=== PATIENT | female | born 1965 | race Caucasian/White ===

== ENCOUNTER → 2019-07-16 15:29 | Outpatient (CLI) | payer BC, SELFPAY ==
--- NOTE | ~2019-07-16 | MM_ITS ---
EXAMINATION: MM screening [facility] BI w biju HISTORY: Screening mammogram TECHNIQUE: Craniocaudal and mediolateral oblique 3-D tomosynthesis images were obtained and synthetic 2-D images were generated. CAD analysis was submitted and interpreted. COMPARISON: 05/03/2018 bilateral digital screening mammogram 03/10/2017 diagnostic left digital mammogram 02/27/2017, 01/27/2016 bilateral digital screening mammograms BREAST PARENCHYMAL COMPOSITION: The breasts are heterogeneously dense, which may obscure small masses . FINDINGS: . There is no evidence of suspicious mass, calcification, or architectural distortion to hawkins ggest malignancy in either breast. There has been no suspicious interval change. IMPRESSION: 1. No mammographic evidence of malignancy. 2. Recommend routine screening mammography in one year. BI-RADS Category 1: Negative Reviewed, dictated and finalized at location A.
== END ==
PROVIDERS: PCP Physician Assistant; Visit Provider Obstetrics & Gynecology
DX: Z12.31 Encounter for screening mammogram for malignant neoplasm of breast (principal)
CPT/HCPCS: 77063; 77067

== ENCOUNTER 2020-03-23 07:02 | Outpatient (NON) | payer BC, SELFPAY ==
[2020-03-24 01:01] LABS: SARS-CoV-2 RNA PCR Negative
== END 2020-03-23 07:03 ==
PROVIDERS: PCP Physician Assistant; Visit Provider Physician Assistant
DX: R68.89 Other general symptoms and signs (principal); Z20.828 Contact with and (suspected) exposure to other viral communicable diseases
CPT/HCPCS: 87635; C9803; U0003

== ENCOUNTER → 2020-09-15 15:22 | Outpatient (CLI) | payer OTHER, SELFPAY ==
--- NOTE | ~2020-09-15 | MM_ITS ---
EXAMINATION: MM screening [facility] BI w biju HISTORY: Screening mammogram TECHNIQUE: Craniocaudal and mediolateral oblique 3-D tomosynthesis images were obtained and synthetic 2-D images were generated. CAD analysis was submitted and interpreted. COMPARISON: 07/12/2019, 05/03/2018 bilateral digital screening mammogram examinations 03/10/2017 diagnostic left digital mammogram 02/27/2017, 02/27/2016 bilateral digital screening mammogram examinations BREAST PARENCHYMAL COMPOSITION: The breasts are heterogeneously dense, which may obscure small masses . FINDINGS: There is no evidence of suspicious mass, calcification, or architectural distortion to sugg est malignancy in either breast. There has been no suspicious interval change. IMPRESSION: 1. No mammographic evidence of malignancy. 2. Recommend routine screening mammography in one year. BI-RADS Category 1: Negative Reviewed, dictated and finalized at location A.
== END ==
PROVIDERS: PCP Physician Assistant; Visit Provider Obstetrics & Gynecology
DX: Z12.31 Encounter for screening mammogram for malignant neoplasm of breast (principal)
CPT/HCPCS: 77063; 77067

== ENCOUNTER → 2021-12-01 10:35 | Outpatient (CLI) | payer BC, SELFPAY ==
--- NOTE | ~2021-12-01 | MM_ITS ---
EXAMINATION: MM screening [facility] BI w biju HISTORY: Screening mammogram TECHNIQUE: Craniocaudal and mediolateral oblique 3-D tomosynthesis images were obtained and synthetic 2-D images were generated. CAD analysis was submitted and interpreted. COMPARISON: 09/15/2020, 07/16/2019, 05/03/2018 BREAST PARENCHYMAL COMPOSITION: There are scattered areas of fibroglandular density. FINDINGS: There is no suspicious mass, calcification, or architectural distortion to suggest malignan cy in either breast. There has been no suspicious interval change. IMPRESSION: 1. No mammographic evidence of malignancy. 2. Recommend routine screening mammography in one year. BI-RADS Category 1: Negative Reviewed, dictated and finalized at location A.
== END ==
PROVIDERS: PCP Physician Assistant; Visit Provider Obstetrics & Gynecology
DX: Z12.31 Encounter for screening mammogram for malignant neoplasm of breast (principal)
CPT/HCPCS: 77063; 77067

== ENCOUNTER 2022-02-09 07:59 | Emergency (ER) | payer BC, SELFPAY ==
[2022-02-09] VITALS (12 sets, daily range): BP systolic 126–165; BP diastolic 75–84; PULSE 84–121; RESP 16–18; TEMP 37; O2SAT 94–97
--- NOTE | ~2022-02-09 | CT_ITS ---
EXAMINATION: CT abdomen pelvis w con DATE: 02/09/2022 10:16 INDICATION: Abdominal pain, chills and fever. Urinary tract infection. TECHNIQUE: Computed tomography (CT) of the abdomen and pelvis was performed with 100 mL Omnipaque-350 intravenous contrast. Automated exposure control and iterative reconstruction technique were employe d. The dose-length product was 574.50 mGy-cm. COMPARISON: None FINDINGS: Mild dependent atelectasis in the bilateral lower lobes. Heart size is normal. No pericardial or pleu ral effusion. Multiple gallstones in the dependent aspect of the normal-appearing gallbladder with no dilation, wall thickening or pericholecystic inflammatory stranding to suggest acute cholecystitis. Liver is normal. No intra or extrahepatic biliary ductal dilation. Pancreas, spleen and bilateral adr enal glands are normal. Bilateral renal cysts, the largest on the right measuring 5.8 cm in maximal d iameters. There is prominent urothelial enhancement at the right renal collecting system and extendin g the length of the right ureter with associated mild periureteral inflammatory stranding which exten ds to bladder consistent with ascending urinary tract infection. No region of abnormal parenchymal en hancement at the right kidney to suggest associated pyelonephritis. There are couple tiny foci of gas within the otherwise normal-appearing partially decompressed bladder. 6.7 cm fibroid at the left pos terior uterine fundus. There is a second smaller approximately 2.4 cm fibroid with coarse calcificati ons at the right anterior side of the fundus. 2.4 cm left adnexal cyst. Bowels including the appendix are normal. Tiny fat-containing umbilical hernia. No free intraperitoneal gas or fluid. No pathologi chelita enlarged abdominal or pelvic lymphadenopathy. Severe spondylosis at L2-L3 with otherwise mild l umbar and lower thoracic spondylosis. Indeterminate 1.5 cm lucent lesion in the L3 vertebral body. IMPRESSION: 1. Urothelial enhancement along the length of the right ureter as well as the right renal collecting system consistent with ascending urinary tract infection and ureteritis and pyelitis without definiti ve pyelonephritis. 2. Cholelithiasis. 3. Single indeterminate 1.5 similar lucent lesion in the L3 vertebral body which could be either bimal gn such as a hemangioma or malignant suggest metastatic disease or multiple myeloma. Bone scan can be insensitive for assessment of lytic bone lesions and would consider further evaluation with pre and postcontrast MRI. Reviewed, dictated and finalized at location A. IMPRESSION: 1. Urothelial enhancement along the length of the right ureter as well as the r ight renal collecting system consistent with ascending urinary tract infection and ureteritis and pyelitis without definitive pyelonephritis. 2. Cholelithiasis. 3. Single indeterminate 1.5 similar lucent lesion in the L3 vertebral body whic h could be either benign such as a hemangioma or malignant suggest metastatic d isease or multiple myeloma. Bone scan can be insensitive for assessment of lyti c bone lesions and would consider further evaluation with pre and postcontrast MRI.
[2022-02-09 08:47] LABS: Basophils Absolute Auto 0.1 K/mm3 (0.0-0.1); Basophils Percent Auto 0.6 % (0.2-1.2); Eosinophils Absolute Auto 0.1 K/mm3 (0-0.3); Eosinophils Percent Auto 0.8 % (0-4.4); Hematocrit 45.7 % (37.0-47.0); Hemoglobin 15.4 g/dL (12.0-15.0); Immature Granulocyte Absolute 0.03 K/mm3 (0.00-0.031); Immature Granulocyte Percent A 0.3 % (0-0.5); Lymphocytes Absolute Auto 0.49 K/mm3 (0.9-3.2); Lymphocytes Percent Auto 4.6 % (18.3-44.2); Mean Corpuscular HGB Conc 33.7 g/dl (32-36); Mean Corpuscular Hemoglobin 30.1 pg (26-34); Mean Corpuscular Volume 89.3 fl (80-100); Mean Platelet Volume 10.1 fl (7.4-10.4); Monocytes Absolute Auto 0.7 K/mm3 (0.1-0.6); Monocytes Percent Auto 6.4 % (2.6-8.5); Neutrophils Absolute Auto 9.4 K/mm3 (1.3-6.7); Neutrophils Percent Auto 87.3 % (45.5-73.1); Platelet Count Result 209 k/mm3 (150-375); Red Blood Count 5.12 M/mm3 (4.2-5.4); Red Cell Distribution Width 14.5 % (11.5-14.5); White Blood Count 10.7 K/mm3 (4.5-10.0)
[2022-02-09 09:00] LABS: Alanine Aminotransferase 32 U/L (6-35); Albumin Level 4.4 g/dL (3.5-5.1); Alkaline Phosphatase 100 U/L (38-126); Anion Gap 12 mmol/L (8-16); Aspartate Amino Transferase 28 U/L (14-36); Bilirubin,Total 1.6 mg/dL (0.2-1.3); Blood Urea Nitrogen 26 mg/dL (7-17); Carbon Dioxide 24 mmol/L (22-30); Chloride 104 mmol/L (98-107); Estimated CRCL calculation 79 ml/min; Estimated Glomerular Filt Rate > 60; Glucose 131 mg/dL (65-110); Lipase 60 U/L (23-300); Potassium 3.4 mmol/L (3.4-5.0); Sodium 140 mmol/L (137-145)
[2022-02-09 09:02] LABS: Add Urine Microscopic? YES; Appearance Urine Cloudy (Clear); Bacteria Urine 1+ /hpf; Bilirubin Urine Negative (Negative); Blood Urine 3+ (Negative); Color Urine Yellow (Yellow); Glucose Urine UA 3+ mg/dL (Negative); Ketones Urine 1+ mg/dL (Negative); Leukocyte Esterase Ur 3+ LEU/UL (Negative); Nitrate Urine Positive (Negative); Protein Urine 1+ mg/dL (Negative); RBC Urine >75 /hpf (0-2); Specific Grav Ur 1.022 (1.001-1.035); Squamous Epithelial Cell Urine Rare /hpf (Few); Urobilinogen Urine Negative mg/dL (<2.0); WBC Clumps Urine Present /HPF; WBC Urine >75 /hpf
[2022-02-09] MEDS: SODIUM CHLORIDE 0.9% IV 1,000 ML 999 ML IV CONT (09:52)
--- NOTE | 2022-02-09 10:38 | ED.ABDPAIN ---
HPI - Abdominal Pain General Chief Complaint: Abdominal Pain Stated Complaint: abd pain, fever, chills Time Seen by Provider: 02/09/22 09:13 Source: patient Mode of arrival: ambulatory Limitations: no limitations History of Present Illness HPI narrative: This is a 56-year-old female that presents to the emergency department for abdominal pain and fevers. Ongoing over the last couple of days. Reports some vaginal spotting. She is scheduled for hysterectomy next Monday with Dr. Hu. Denies vomiting, dysuria, hematuria. Related Data Home Medications Medication Instructions Recorded Confirmed amlodipine 5 mg tablet 5 mg PO DAILY 02/07/22 02/09/22 budesonide 0.5 mg/2 mL suspension 0.5 mg irrigation DAILY 02/07/22 02/07/22 for nebulization empagliflozin 10 mg tablet 10 mg PO DAILY 02/07/22 02/09/22 (Jardiance) fluticasone furoate 200 1 inh inhalation DAILY 02/07/22 02/09/22 mcg-vilanterol 25 mcg/dose inhalation powder (Breo Ellipta) lisinopril 20 mg tablet 20 mg PO DAILY 02/07/22 02/09/22 metformin 500 mg tablet,extended 1,000 mg PO HS 02/07/22 02/09/22 release 24 hr montelukast 10 mg tablet 10 mg PO HS 02/07/22 02/09/22 pantoprazole 40 mg tablet,delayed 40 mg PO DAILY 02/07/22 02/09/22 release rosuvastatin 5 mg tablet 5 mg PO HS 02/07/22 02/09/22 Allergies Allergy/AdvReac Type Severity Reaction Status Date / Time No Known Allergies Allergy Unverified 02/07/22 10:30 Review of Systems Review of Systems: CONSTITUTIONAL: Reports fever GASTROINTESTINAL: Reports abdominal pain. Denies vomiting, or diarrhea. GENITOURINARY: Denies dysuria or hematuria. All systems reviewed & are unremarkable except as noted in HPI and below PMFSH Past Medical History Medical History (Updated 02/09/22 @ 11:13 by Arabella Bradshaw PA-C) History of diabetes mellitus History of hypertension Family History Family History Father Carcinoma of colon Sibling Carcinoma of colon Family history of malignant neoplasm of uterus Mother Hypertension Social History Social History Smoking status: Never smoker Second hand tobacco smoke exposure: No Alcohol intake: never Substance use: never Substance use type: does not use Spiritual care concerns: No Exam Narrative: GENERAL: Well-appearing, well-nourished, and in no acute distress. HEAD: Normocephalic, atraumatic. EYES: EOMI. CHEST: Clear to auscultation. No respiratory distress. No wheezes rales or rhonchi HEART: Regular rate and rhythm. No murmur heard. Normal peripheral pulses. ABDOMEN: Soft, nontender, nondistended, normal active bowel sounds. No CVA tenderness EXTREMITIES: Normal range of motion. No edema. SKIN: Warm, dry, no rash. NEURO: No focal deficits. Alert and oriented x3. PSYCH: Normal mood and affect Course Consultations Consultation #1: poke with Dr. Hu about patient and work-up as she is scheduled for hysterectomy on Monday. Would like her discharged on ciprofloxacin and will follow-up. Date: 02/09/22 Time: 11:13 Vital Signs Vital signs: Vital Signs Pulse Rate 121 H 02/09/22 08:04 Respiratory Rate 18 02/09/22 08:04 Blood Pressure 165/78 H 02/09/22 08:04 Pulse Oximetry 97 02/09/22 08:04 Oxygen Delivery Room Air 02/09/22 08:04 Temperature 98.6 F 02/09/22 09:15 Pulse Rate 84 02/09/22 11:00 Respiratory Rate 16 02/09/22 11:00 Blood Pressure 126/84 02/09/22 11:00 Pulse Oximetry 97 02/09/22 11:00 Oxygen Delivery Room Air 02/09/22 08:04 MDM - Abdominal Pain MDM Narrative Medical decision making narrative: Patient presents to the emergency department for abdominal pain and fevers. Ongoing over the last couple of days. She is afebrile in the ED and nontoxic-appearing. Tachycardic upon arrival, this normalized with IV fluid administration. CBC with mild leukocytosis to 10.7. A
== END 2022-02-09 11:42 | disposition home or self-care (01) ==
PROVIDERS: Emergency Provider Emergency Medicine; PCP Physician Assistant
DX: N39.0 Urinary tract infection, site not specified (principal); M89.9 Disorder of bone, unspecified; I10 Essential (primary) hypertension; E11.9 Type 2 diabetes mellitus without complications; K80.20 Calculus of gallbladder without cholecystitis without obstruction; Z79.84 Long term (current) use of oral hypoglycemic drugs
CPT/HCPCS: 36415; 74177; 80053; 81001; 81025; 83690; 85025; 87077; 87086; 87186; 96361; 96374; 99284; J0696; J7030; Q9967

== ENCOUNTER 2022-02-14 02:00 | Day surgery (SDC) | payer BC, SELFPAY ==
--- NOTE | 2022-02-06 16:04 | PM.IMHP ---
H&P: HPI History of Present Illness Date/Time: 02/06/22 16:04 Chief Complaint: stress incontinence Narrative: 56-year-old with stress incontinence who desires intervention. Observation in Kegel exercises discussed as well. She is doing a sling in conjunction with a hysterectomy Review of Systems Review of Systems: All systems reviewed & are unremarkable except as noted in HPI and below PMFSH Family History Family History Father Carcinoma of colon Sibling Carcinoma of colon Family history of malignant neoplasm of uterus Mother Hypertension Social History Social History Smoking status: Never smoker Second hand tobacco smoke exposure: No Alcohol intake: current Meds Home Medications and Allergies Allergies Allergy/AdvReac Type Severity Reaction Status Date / Time mometasone furoate Allergy Unknown Verified 11/13/18 10:08 No Known Allergies Allergy Unverified 12/03/18 11:32 Exam Narrative: no acute distress normal breathing alert orient x3 urethral mobility noted Assessment and Plan Assessment and plan (1) JESSI (stress urinary incontinence, female): Code(s): N39.3 - Stress incontinence (female) (male) Status: Acute Assessment and Plan: urethral sling. Understands risks of bleeding, infection, damage surrounding organs, lack of efficacy, recurrence, postoperative voiding dysfunction including incontinence and retention, hip and leg pain, dyspareunia, mesh related complications, need for ancillary procedures. She agrees to proceed
[2022-02-07 10:35] VITALS: BMI 28.8
--- NOTE | 2022-02-07 10:40 | PC.NURSE ---
Report to the Outpatient Waiting Room, entrance under the green pavilion located off [facility], at time 10:30 on date 02/14/22. OR Time: 12:30. Time changes happen often and if your time is changed the preop area will call you the afternoon before. - You and your visitor will be asked to self-screen and do not enter if you have any COVID symptoms. - We encourage only one visitor and NO visitors under age 16 are allowed at this time. Your visitor will receive communication by the phone number that is given day of service. - The patient visitor is requested to social distance or may leave the building when not with patient due to restrictions. - A mask is required within the hospital. Patients may have clear liquids (water, carbonated beverages, clear teas, apple juice) until 3 hours prior to surgery (9:30) with a maximum of 20 ounces. - No food from midnight until time of surgery Take the following medications with a SIP of water the morning of surgery: AMLODIPINE, INHALER Medications to discontinue per physician: N/A Date to take last dose: N/A Please no make-up, nail telugu, hairspray, perfume, deodorant, or body powder the day of surgery. No jewelry (including any body piercings) or valuables the day of surgery, leave them at home. Please take a shower or bath the night before, or the morning of, surgery with an antibacterial soap. Wear comfortable, loose fitting clothing. - Jewelry must be removed prior to entering the operating room. Rings and piercings that are not removed may be cut off. - The hospital will not accept responsibility for valuables. - Please leave all valuables, including medications, at home the day of surgery. If you are going home after surgery, a licensed route relief driver must drive you home. - NO public transportation without another adult. - We recommend that an adult stay with you for 24 hours following discharge. - We also recommend that you do not drive, make important decision, drink alcoholic beverages, or take any drugs that were not prescribed by your health care provider for at least 24 hours after your discharge time. Follow any additional instructions given to you from your surgeon. If you or anyone in your household have experienced Covid symptoms in the past week, please notify your surgeon or the nurse liaison at the phone number below for possible testing. Telephone instructions given to PT - CINDY HOFFMAN and asked if any additional questions and then verbalized understanding. Patient advised to call surgeon office or pre surgery nurse liaison [phone] if any additional questions.
[2022-02-14] VITALS (13 sets, daily range): BP systolic 97–137; BP diastolic 56–78; PULSE 65–85; RESP 12–18; TEMP 36.2–36.9; O2SAT 95–100; BMI 29.0
--- NOTE | 2022-02-14 07:14 | WPDHPUPDATE1 ---
History and Physical Update Update Date/Time: 02/14/22 07:14 History and Physical has been reviewed, including an updated exam of the patient. There are NO changes in the patient's condition. Risks, benefits, and alternatives have been discussed and questions answered. Patient agrees to proceed with procedure.
--- NOTE | 2022-02-14 10:05 | ECG_ITS ---
Measurements Intervals [place] Rate: 72 P: 58 MI: 166 QRS: -7 QRSD: 106 T: 2 QT: 392 QTc: 431 Interpretive Statements SINUS RHYTHM POSSIBLE LEFT ATRIAL ENLARGEMENT CANNOT RULE OUT INFERIOR INFARCT, AGE INDETERMINATE ABNORMAL ECG NO PREVIOUS ECG AVAILABLE FOR COMPARISON Electronically Signed On 02-14-2022 16:12:48 CDT by Yves Whiteside M.D.
--- NOTE | 2022-02-14 10:19 | P.PNAN_ITS ---
Anes - Initial Pre Proc Eval Procedure: Operation Date: 02/14/22 11:30 Proposed Procedures p Robotic Assisted Laparoscopic Hysterectomy with Bilateral Salpingo- Oophorectomy - Roseanne Hu MD s Urethral Sling - Stewart Whelan MD Date/Time: 02/14/22 10:19 Surgeon: Stewart Whelan MD Pre Op Diagnosis: stress incont Patient Data Age: 56 Gender: F Height: 1.65 m Weight: 79.2 kg Allergies Allergy/AdvReac Type Severity Reaction Status Date / Time No Known Allergies Allergy Unverified 02/07/22 10:30 Home Medications Medication Instructions Recorded Confirmed Type amlodipine 5 mg tablet 5 mg PO DAILY 02/07/22 02/09/22 History budesonide 0.5 mg/2 mL suspension 0.5 mg irrigation DAILY 02/07/22 02/07/22 History for nebulization empagliflozin 10 mg tablet 10 mg PO DAILY 02/07/22 02/09/22 History (Jardiance) fluticasone furoate 200 1 inh inhalation DAILY 02/07/22 02/09/22 History mcg-vilanterol 25 mcg/dose inhalation powder (Breo Ellipta) lisinopril 20 mg tablet 20 mg PO DAILY 02/07/22 02/09/22 History metformin 500 mg tablet,extended 1,000 mg PO HS 02/07/22 02/09/22 History release 24 hr montelukast 10 mg tablet 10 mg PO HS 02/07/22 02/09/22 History pantoprazole 40 mg tablet,delayed 40 mg PO DAILY 02/07/22 02/09/22 History release rosuvastatin 5 mg tablet 5 mg PO HS 02/07/22 02/09/22 History ciprofloxacin HCl 500 mg tablet 500 mg PO Q12H 1 week #14 tabs 02/09/22 Rx Patient hx anesthesia problems: none Family hx anesthesia problems: none Results Review: All pre-operative results and documents have been reviewed as part of the pre- operative evaluation. [facility] Past Medical History Medical History History of diabetes mellitus History of hypertension Family History Family History Father Carcinoma of colon Sibling Carcinoma of colon Family history of malignant neoplasm of uterus Mother Hypertension Social History Social History Smoking status: Never smoker Second hand tobacco smoke exposure: No Alcohol intake: never Substance use: never Substance use type: does not use Living arrangements: with family Spiritual care concerns: No Anes - Eval Final PreProcedure Day of Procedure 02/14/22 10:19 Patient weight: overweight Heart: regular rate and rhythm Lungs: clear to auscultation Airway: Mallampati scale class II Neurological: alert and oriented Last oral intake: >/= 8 hours ASA classification: III Emergent: no Anesthetic plan: proceed Anesthesia type and monitoring: general ETT and standard monitoring Results Review: All pre-operative results and documents have been reviewed as part of the pre- operative evaluation. Informed Consent: The patient's anesthetic plan and its attendant risks and benefits were discussed with the patient/family/POA. Questions were solicited and answers provided to the satisfaction of the patient/family/POA.
[2022-02-14 10:25] LABS: Glucose Point of Care 116 mg/dl (65-105)
[2022-02-14] MEDS: LACTATED RINGERS 1,000 ML 30 ML IV CONT ×2 (10:25→15:18)
[2022-02-14] MEDS: ACETAMINOPHEN 500 MG TABLET 1000 MG PO (10:36)
[2022-02-14] MEDS: KETOROLAC 15 MG/ML VIAL (*BKC) IV PUSH (10:37)
--- NOTE | 2022-02-14 10:39 | WPDHPUPDATE1 ---
History and Physical Update Update Date/Time: 02/14/22 10:39 History and Physical has been reviewed, including an updated exam of the patient. There are NO changes in the patient's condition. Risks, benefits, and alternatives have been discussed and questions answered. Patient agrees to proceed with procedure.
[2022-02-14] MEDS: ceFAZolin 2 GM/D5W 50 ML 2 GM/50 ML BAG IVPB (11:54)
[2022-02-14] MEDS: ceFAZolin SODIUM 1 GM VIAL (12:46)
[2022-02-14] MEDS: BUPIVACAINE/EPINEPHRINE 0.25% 50 ML VIAL 20 ML INFILTRATE (12:47)
--- NOTE | 2022-02-14 15:12 | W.PM.PROC2 ---
Procedure Note - Detailed Date of Procedure 02/14/22 Pre-op Diagnosis stress incont,Postmenopausal bleeding, fibroids Post-op Diagnosis Same Procedure Performed Robot assisted Total hysterectomy with bilateral Salpingo-oophorectomy. co surgery with Dr. Whelan - suburethral sling Surgeon Roseanne Hu, Anesthesia General Indications pelvic pain Findings normal-appearing uterus tubes and ovaries. Normal appearing vulva vagina and cervix. Description of Procedure This patient was taken to the operating room. She was prepped and draped in the dorsal lithotomy position after induction of general anesthesia. The uterine manipulator and Flavio cup were placed. This was done with a speculum and tenaculum. The speculum was placed. The cervix was grasped with a tenaculum. The stay sutures were placed at 3 and 9:00 a.m.. The stay sutures of 0 Vicryl were tied to the appropriately Size scope after it was slipped around the cervix.. The tip of the ELIZABETH manipulator was placed in the intrauterine cavity. The cup was slid into place around the cervix and into the fornices. It was locked into place. The sutures were then wrapped around the handle and tied under tension. A 8 mm skin incision was made in the left upper quadrant the abdomen. a 5 mm Visiport trocar was inserted into abdominal cavity and pneumoperitoneum was achieved. A 8 mm supraumbilical incision was made and a 8 mm trocar was inserted into the intrauterine cavity under direct visualization of the scope. an 8 mm incision was made in the right upper quadrant of the abdomen and an 8 mm robotic trocar was placed the inter uterine cavity under direct visualization the scope. An 11 mm trocar was inserted in the right upper quadrant of the abdomen rectal is a cystoscope after an incision was made there as well. The robot was docked. Electronic Orientation of the robot was performed. Bilateral ureteral lysis was performed. This was done from the pelvic brim down to the uterine artery. This was done with careful dissection using sharp and blunt dissection. The fallopian tubes and ovaries were removed bilaterally. The infundibulopelvic ligament was isolated after identification of the ureter. It was cauterized and transected with the vessel sealer fashion. The mesosalpinx on lateral of the ovary was cauterized transected the vessel sealer. In a stepwise fashion along the lateral aspects of the uterus the round ligament and broad ligaments were cauterized transected down to the level of the uterine arteries. A bladder flap was created in the bladder was moved distally to the end of the cervix and over the Flavio cup. The bilateral uterine arteries were cauterized and transected. Colpotomy was then performed. In a circumferential fashion the vagina was transected using unipolar cautery. The incision was made down on the Flavio cup. The uterus and cervix were taken out through the vagina. A pneumo occluder was placed in the vagina. The vaginal cuff was closed with a 0 V lock suture in a running fashion. The pelvis was irrigated with copious amounts antibiotic irrigation. The ureters were again examined and found to be intact and flowing freely under the uterine arteries into the bladder. The bladder was intact. It was examined directly. The vagina was irrigated with Betadine solution after removal of the Pneumo occluder. the trocars were removed after the robot was undocked. The skin was closed with subacute or Dermabond. The patient was taken to recovery room. She was stable condition. Sponge lap and needle counts were correct x2. Estimated Blood Loss -25.0 Urine Output -125.0 Drains Yes Packing No Pathology Yes Complications No immediate complications Condition Stable Disposition Floor
--- NOTE | 2022-02-14 15:24 | W.PM.PROC2 ---
Procedure Note - Detailed Date of Procedure 02/14/22 Pre-op Diagnosis stress incont Post-op Diagnosis Same Procedure Performed mid urethral sling cystoscopy Surgeon Stewart Whelan MD Anesthesia General Indications This is a female with confirm stress urinary incontinence. She desires surgical correction. She understands the risks of bleeding, infection, injury to the urinary tract, vaginal mesh extrusion, urinary tract mesh erosion, obstructive voiding requiring a secondary procedure, hip and leg pain, dyspareunia, inability to improve overactive bladder symptoms. She agrees to proceed. Would do this in conjunction with hysterectomy by her squaring shear operator Findings Uncomplicated urethral sling Description of Procedure I into the operating room after her hysterectomy. She eye re prepped the patient. She was already given appropriate perioperative antibiotics. A time-out performed. Examination of the vagina revealed some lacerations on the lateral griffin, clitoral area, perineum. I informed her squaring shear operator of this and no additional suturing was needed. I marked out the site of the inner thigh incisions. I anesthetized the skin and made those incisions. I anesthetized the anterior vaginal wall over the mid urethra. I made a 1 cm incision. I dissected out laterally taking great care not to injure the refilled vaginal wall. I passed the helical trocars. First on the left. Then on the right. I did this from the thigh incision towards the vaginal incision. The sling was connected to the trocars and brought out through the thigh incision. All trocar passage was done away from the vaginal wall lacerations. I tensioned the sling appropriately. I cut and the plastic sheaths. I then closed the incision with 2 0 Vicryl. On cystoscopy there is no tumors or surgical artifact. There was no surgical artifact in the urethra. There is no sign of bladder injury. Both ureters were seen to excrete clear yellow urine. I cut the excess sling material. Close incisions with glue. She was awakened and transferred to the PACU in stable condition. Implants Urethral sling Estimated Blood Loss -25.0 Urine Output -125.0 Drains No Packing No Pathology None sent Complications No immediate complications Condition Stable Disposition PACU
[2022-02-14 15:34] LABS: Glucose Point of Care 130 mg/dl (65-105)
[2022-02-14] MEDS: fentaNYL CITRATE INJ (*CRX) 100 MCG/2 ML VIAL 25 MCG IV PUSH (15:57)
--- NOTE | 2022-02-14 16:40 | PC.NURSE ---
Patient transferred to post room # [id number] ( ). Support person present. Oriented to unit, room, information board, rooming in, admission packet and security measures. Patient verbalizes understanding.
[2022-02-14] MEDS: DEXTROSE 5%/0.45% SOD CHL 1,000 ML 125 ML IV CONT (16:57)
[2022-02-14] MEDS: KETOROLAC 30 MG/ML VIAL (*BKC) IV PUSH (17:01)
[2022-02-14 17:18] LABS: Glucose Point of Care 122 mg/dl (65-105)
[2022-02-14] MEDS: HYDROcodone/acetaminophen (*CRX) 10-325 MG TABLET 1 TAB PO (20:06)
[2022-02-14] MEDS: ROSUVASTATIN 5 MG TABLET PO (20:06)
[2022-02-14] MEDS: MONTELUKAST SODIUM 10 MG TABLET PO (20:06)
[2022-02-14] MEDS: metFORMIN HCL XR 500 MG TAB.SR.24H 1000 MG PO (20:06)
[2022-02-14] MEDS: FLUTICASONE/SALMETEROL 230-21 MCG INHALER 1 PUFF 2 PUFF INHALATION (21:56)
[2022-02-15 03:42] VITALS: BP 105/60; PULSE 73; RESP 18; TEMP 36.8
[2022-02-15] MEDS: HYDROcodone/acetaminophen (*CRX) 5-325 MG TABLET 1 TAB PO (07:15)
[2022-02-15 07:25] VITALS: BP 136/70; PULSE 76; RESP 18; TEMP 36.5; O2SAT 97
[2022-02-15] MEDS: amLODIPine BESYLATE 5 MG TABLET PO (08:20)
[2022-02-15] MEDS: PANTOPRAZOLE 40 MG TABLET PO (08:21)
[2022-02-15] MEDS: EMPAGLIFLOZIN 10 MG TABLET PO (08:21)
[2022-02-15] MEDS: lisinopriL 20 MG TABLET PO (08:22)
[2022-02-15] MEDS: FLUTICASONE/SALMETEROL 230-21 MCG INHALER 1 PUFF 2 PUFF INHALATION (09:36)
--- NOTE | 2022-02-15 12:48 | PM.GYNPNOP ---
BOILER ERECTOR - A/P Postoperative Procedures: Procedures Operation Date: 02/14/22 11:30 Actual Procedure Side Surgeon p Robotic Assisted Laparoscopic Hysterectomy with Bilateral Salpingo-Oophorectomy Bilateral Roseanne Hu MD s Urethral Sling Stewart Whelan MD Postoperative day: 1 Postoperative status: doing well Postoperative plan: see orders Time Spent With Patient Time: Total time spent is greater than 50% in coordination of care (as documented) at patient's floor/unit and/or counseling patient: Time with patient: less than 15 minutes BOILER ERECTOR- PN:Subj Post-Op Subjective Date/time seen: 02/15/22 12:48 Subjective: patient reports feeling better, patient has no complaints and pain is well controlled Exam Const: General: healthy appearing, comfortable and no acute distress Resp: Auscultation: clear to auscultation bilaterally, no rales, no rhonchi and no wheezes Cardio: Rate: regular rate Heart sounds: no click, no murmurs and no rubs GI: Inspection: non-distended Auscultation: normal bowel sounds Extrem: General: normal to inspection, no pedal edema and no calf tenderness BOILER ERECTOR - PN: Obj Data Vital Signs Vital Signs: Vital Signs - 24 hr 02/14/22 15:18 02/14/22 15:35 02/14/22 15:50 Temperature 97.4 F L Pulse Rate 76 65 79 Respiratory Rate 13 12 12 Blood Pressure 97/56 L 117/65 116/67 Pulse Oximetry 97 99 96 Oxygen Delivery Simple Face Mask Simple Face Mask Room Air Oxygen Flow Rate 8 8 02/14/22 15:58 02/14/22 16:05 02/14/22 16:20 Temperature Pulse Rate 71 76 Respiratory Rate 16 14 Blood Pressure 116/67 116/68 Pulse Oximetry 95 99 98 Oxygen Delivery Nasal Cannula Nasal Cannula Room Air Oxygen Flow Rate 3 3 02/14/22 16:31 02/14/22 17:27 02/14/22 17:27 Temperature 97.8 F Pulse Rate 85 81 Respiratory Rate 14 16 Blood Pressure 122/71 133/78 Pulse Oximetry 98 96 96 Oxygen Delivery Nasal Cannula Nasal Cannula Oxygen Flow Rate 3 2 02/14/22 18:18 02/14/22 18:30 02/14/22 19:00 Temperature 98.1 F Pulse Rate 85 Respiratory Rate 18 Blood Pressure 137/71 Pulse Oximetry 97 96 Oxygen Delivery Nasal Cannula Nasal Cannula Oxygen Flow Rate 2 1 02/14/22 22:57 02/15/22 03:42 02/15/22 03:45 Temperature 98.5 F 98.3 F Pulse Rate 85 73 Respiratory Rate 16 18 Blood Pressure 122/67 105/60 Pulse Oximetry Oxygen Delivery Room Air Oxygen Flow Rate 02/15/22 07:25 Temperature 97.7 F Pulse Rate 76 Respiratory Rate 18 Blood Pressure 136/70 Pulse Oximetry 97 Oxygen Delivery Oxygen Flow Rate Intake/Output Intake/Output: Intake & Output 02/12/22 02/13/22 02/14/22 02/15/22 23:59 23:59 23:59 23:59 Intake Total 1440 500 Output Total 1650 300 Balance -210 200 Meds/Results Medications: Active Medications Generic Name Dose Route Start Last Admin Trade Name Freq PRN Reason Stop Dose Admin Hydrocodone Bitart/Acetaminophen 1 tab 02/14/22 16:33 02/15/22 07:15 Hydrocodone/Acetaminophen (*Crx) 5-325 Mg Tablet PO 1 tab Q3H PRN Administration Pain Rated 5 or Less Hydrocodone Bitart/Acetaminophen 1 tab 02/14/22 16:33 02/14/22 20:06 Hydrocodone/Acetaminophen (*Crx) 10-325 Mg Tablet PO 1 tab Q3H PRN Administration Pain Rated 6 or Greater Amlodipine Besylate 5 mg 02/15/22 09:00 02/15/22 08:20 Amlodipine Besylate 5 Mg Tablet PO 5 mg DAILY BRIAN Administration Budesonide 0.5 mg 02/15/22 09:00 02/15/22 09:37 Budesonide Respule Neb 0.5 Mg/2 Ml Amp INHALATION Not Given DAILY BRIAN Empagliflozin 10 mg 02/15/22 09:00 02/15/22 08:21 Empagliflozin 10 Mg Tablet PO 10 mg DAILY BRIAN Administration Ibuprofen 600 mg 02/14/22 16:33 Ibuprofen 600 Mg Tablet PO Q6H PRN Cramping Ketorolac Tromethamine 30 mg 02/14/22 16:33 02/14/22 17:01 Ketorolac 30 Mg/Ml Vial (*Bkc) IV PUSH 02/19/22 16:32 30 mg Q6H PRN Administration Pain Rated 4-6 Lisinopril 20 mg 02/15/22 09:00
--- NOTE | 2022-02-15 14:05 | WPDANESPN ---
Anes - Prog Note Post-Op Date/Time: 02/15/22 14:05 Vital Signs: Last Vital Signs Temp 36.5 C 02/15/22 07:25 Pulse 76 02/15/22 07:25 Resp 18 02/15/22 07:25 BP 136/70 02/15/22 07:25 Pulse Ox 97 02/15/22 07:25 O2 Del Method Room Air 02/15/22 03:45 O2 Flow Rate 1 02/14/22 19:00 Pain Score (VAS): 0 I/O: Intake & Output 02/14/22 02/15/22 02/15/22 23:59 07:59 15:59 Intake Total 1390 500 Output Total 1650 300 Balance -260 200 02/14/22 02/14/22 15:30 17:14 POC Capillary Glucose 130 H 122 H Patient Feedback: Patient satisfied with anesthetic care.
== END 2022-02-15 15:00 | disposition home or self-care (01) ==
LOC: ANHSURGERY 09:37 → ANHOB2 16:34
PROVIDERS: Obstetrics & Gynecology; PCP Physician Assistant; Visit Provider Urology
PROC: (CPT 58571; principal; 2022-02-14 11:30)
PROC: (CPT 57288; 2022-02-14 11:30)
DX: N39.3 Stress incontinence (female) (male) (principal); N95.0 Postmenopausal bleeding; D25.9 Leiomyoma of uterus, unspecified; N80.00 Endometriosis of the uterus, unspecified; D27.1 Benign neoplasm of left ovary; I10 Essential (primary) hypertension; E11.9 Type 2 diabetes mellitus without complications; Z79.51 Long term (current) use of inhaled steroids; Z79.84 Long term (current) use of oral hypoglycemic drugs
CPT/HCPCS: 57288; 58571; S2900; 36415; 82948; 86850; 86900; 86901; 88307; 93005; 94640; 99199; A9270; C1758; C1769; C1771; J0690; J1100; J1885; J2250; J2405; J2704; J2710; J3010; J7030; J7120

== ENCOUNTER 2022-03-08 15:57 | Outpatient (CLI) | payer BC, SELFPAY ==
--- NOTE | ~2022-03-08 | MR_ITS ---
EXAMINATION: MR lumbar spine wo/w con DATE: 03/08/2022 16:46 INDICATION: Lesion of vertebrae TECHNIQUE: Magnetic resonance imaging (MRI) of the lumbar spine was performed without and with 17 mL Multihance intravenous contrast. Sequences included sagittal T2-weighted FSE, sagittal T2-weighted FS FSE, and sagittal and axial T1-weighted FSE. Postcontrast sequences included axial T2-weighted FSE, sagittal T1-weighted FSE, and axial and sagittal T1-weighted FS FSE. COMPARISON: None FINDINGS: 2 mm retrolisthesis L2 on L3. Mild likely physiologic anterior wedging at T12 and L1. The L3 lytic le loretta seen on prior CT is T1 hyperintense with fat saturation and without abnormal enhancement consist ent with a hemangioma. Additional T1 hyperintense hemangioma at T10. Low signal intensity bone island , sclerotic on CT was deflated margins and without abnormal enhancement or associated increased T2 si gnal at the S2 vertebral body. No fracture other suspicious or abnormal enhancing bone lesions. Mild upper lumbar dextrocurvature centered at L2-L3 where there is severe left-sided predominant disc heig ht loss with associated fibrovascular and fibrofatty degenerative endplate changes. Mild disc height loss at L1-L2 The conus medullaris terminates at L1-L2. There is normal signal in the caudal spinal c ord. Couple T2 hyperintense nonenhancing right renal cysts, the larger measuring 4.0 cm. Paravertebra l soft tissues are unremarkable. The following disc levels are specifically discussed: T12-L1: Disc is minimally bulging with annular fissure and superimposed left Paracentral disc extrusi on with disc material extending a few millimeter cephalad and caudal to the level of the endplates. T here is moderate bilateral facet osteoarthritis. There is no neural foraminal stenosis. There is mild central canal stenosis. L1-L2: Moderate diffuse disc bulge. There is moderate bilateral facet joint osteoarthritis. There is no neural foraminal stenosis. There is mild central canal stenosis. L2-L3: The disc is bulging with superimposed annular fissure and broad-based disc extrusion extending from foraminal zone to foraminal zone with disc material extending a couple millimeter caudal to the level of the superior endplate of L3. But not beyond the more posterior margin of the posterior rim of the inferior L2 endplate. There is mild to moderate bilateral facet joint osteoarthritis. There is mild bilateral neural foraminal stenosis. There is mild central canal stenosis. L3-L4: Disc is minimally bulging with superimposed bilateral foraminal zone annular fissures and mild to moderate disc protrusions. There is moderate bilateral facet joint osteoarthritis. There is mild bilateral neural foraminal stenosis. There is minimal central canal stenosis. L4-L5: Disc is minimally bulging with superimposed right foraminal zone and left extraforaminal zone annular fissures and small disc protrusions. There is moderate bilateral facet joint osteoarthritis. There is mild bilateral neural foraminal stenosis. There is minimal central canal stenosis. L5-S1: Moderate eccentric to the right disc bulge with right foraminal zone annular fissure. There is moderate right and severe left facet joint osteoarthritis. There is mild bilateral neural foraminal stenosis. There is minimal central canal stenosis and mild stenosis of the right lateral recess. IMPRESSION: 1. The lytic region of concern at L3 along with an additional smaller lesion at T11 demonstrate MRI f eatures consistent with hemangiomas. No suspicious enhancing lesions identified. 2. Mild lumbar dextrocurvature with severe spondylosis. Reviewed, dictated and finalized at location B. NING STRATEGIST IMPRESSION: 1. The lytic region of concern at L3 along with an rell
== END 2022-03-08 15:58 | disposition home or self-care (01) ==
PROVIDERS: PCP Physician Assistant; Visit Provider Physician Assistant
DX: M48.8X6 Other specified spondylopathies, lumbar region (principal); M47.896 Other spondylosis, lumbar region
CPT/HCPCS: 72158; A9577

== ENCOUNTER 2022-10-23 18:20 | Observation (INO) | payer BC, SELFPAY ==
--- NOTE | ~2022-10-23 | XR_ITS ---
EXAMINATION: XR retrograde pyelo w/stent LT DATE: 10/24/2022 12:32 INDICATION: Left ureteral stone. TECHNIQUE: 51 intraoperative fluoroscopic views of the abdomen and pelvis were obtained. I was not pr esent. Fluoroscopy exposure time was 24 seconds. COMPARISON: CT abdomen and pelvis 10/24/2022 FINDINGS: The left-sided retrograde pyelogram demonstrates a stone in the distal left ureter. The fin al images demonstrate a left internal ureteral stent in expected position. IMPRESSION: 1. Stone in the distal left ureter. 2. Left internal ureteral stent in expected position. Reviewed, dictated and finalized at location A.
--- NOTE | ~2022-10-23 | CT_ITS ---
EXAMINATION: CT abdomen pelvis w con DATE: 10/23/2022 20:25 INDICATION: Urinary tract infection presenting with left flank pain, nausea, vomiting and chills. TECHNIQUE: Computed tomography (CT) of the abdomen and pelvis was performed with 100 mL Omnipaque-350 intravenous contrast. Automated exposure control and iterative reconstruction technique were employe d. The dose-length product was 631.31 mGy-cm. COMPARISON: 02/09/2022 FINDINGS: Lung bases are clear. Heart size is normal. No pericardial or pleural effusion. Multiple calcified ga llstones within the otherwise normal-appearing gallbladder with no dilation, wall thickening or peric holecystic inflammatory stranding to suggest acute cholecystitis. Liver is normal. No intra or extrah epatic ductal dilation. Spleen, pancreas and bilateral adrenal glands are normal. 4.6 and 4.1 cm righ t renal cysts. 5 x 2.5 mm obstructing stone at the left sacral junction with mild left hydronephrosis , perinephric and perirenal stranding and delayed left nephrogram. Bladder is normal. There are few s cattered colonic diverticula without adjacent inflammatory stranding to suggest diverticulitis. Small bowel and appendix are normal. No free intraperitoneal gas or fluid. No pathologically enlarged abdo micki or pelvic lymphadenopathy. Lucent lesion in the L3 vertebral body corresponding to a T1 hyperin tense hemangioma in prior MR spine MR dated 03/08/2022. IMPRESSION: 1. Obstructing 5 x 2.5 mm stone at the left ureterovesicular junction with mild left hydronephrosis. Reviewed, dictated and finalized at location A.
[2022-10-23 18:23] VITALS: BP 134/69; PULSE 104; RESP 18; TEMP 36.5; O2SAT 97
[2022-10-23 19:12] LABS: Appearance Urine Clear (Clear); Bacteria Urine 4+ /hpf; Bilirubin Urine Negative (Negative); Blood Urine 1+ (Negative); Color Urine Yellow (Yellow); Glucose Urine UA Negative (Negative); Ketones Urine Trace mg/dL (Negative); Leukocyte Esterase Ur 1+ LEU/UL (Negative); Nitrate Urine Positive (Negative); Non Pathogenic Casts 0-2; Protein Urine Trace mg/dL (Negative); RBC Urine 21-50 /hpf (0-2); Specific Grav Ur 1.021 (1.001-1.035); Squamous Epithelial Cell Urine None seen /hpf (Few); WBC Urine 21-50 /hpf; pH Urine 7.5 (5.0-9.0)
[2022-10-23 19:15] LABS: Hematocrit 44.2 % (37.0-47.0); Hemoglobin 14.9 g/dL (12.0-15.0); Mean Corpuscular HGB Conc 33.7 g/dl (32-36); Mean Corpuscular Hemoglobin 30.2 pg (26-34); Mean Corpuscular Volume 89.7 fl (80-100); Mean Platelet Volume 9.6 fl (7.4-10.4); Platelet Count Result 194 k/mm3 (150-375); Red Blood Count 4.93 M/mm3 (4.2-5.4); White Blood Count 13.5 K/mm3 (4.5-10.0)
[2022-10-23 19:19] LABS: Add Urine Microscopic? YES
--- NOTE | 2022-10-23 19:23 | PC.NURSE ---
Patient report given to CHEO Roman. All questions answered and care of patient transferred.
[2022-10-23 19:24] LABS: Alanine Aminotransferase 50 U/L (6-35); Albumin Level 4.5 g/dL (3.5-5.1); Alkaline Phosphatase 94 U/L (38-126); Anion Gap 8 mmol/L (8-16); Aspartate Amino Transferase 32 U/L (14-36); Bilirubin,Total 0.8 mg/dL (0.2-1.3); Blood Urea Nitrogen 25 mg/dL (7-17); Calcium 9.6 mg/dL (8.4-10.2); Carbon Dioxide 33 mmol/L (22-30); Chloride 101 mmol/L (98-107); Estimated CRCL calculation 69 ml/min; Estimated Glomerular Filt Rate > 60; Glucose 138 mg/dL (65-110); Lipase 85 U/L (23-300); Potassium 3.5 mmol/L (3.4-5.0); Sodium 142 mmol/L (137-145)
--- NOTE | 2022-10-23 19:28 | ED.FEMALEGU ---
HPI - Female Genitourinary General Chief complaint: Urogenital-Female Stated complaint: n/v, chills lower back pain Time Seen by Provider: 10/23/22 18:46 History of Present Illness HPI Narrative: Patient is a 56-year-old female with a history of diabetes, hypertension, GERD, hyperlipidemia presenting with vomiting. Patient states that she has been having dysuria and increased urinary frequency for the last several days. She called her doctor who sent in for oral antibiotics and Zofran. States that she tried to take these this morning but she has been vomiting since 10 AM and has not been able to keep anything down. States that she has also been having left flank pain for the last day. She denies fevers, headache, numbness or weakness, chest pain, shortness of breath, cough, diarrhea. Related Data Home Medications Medication Instructions Recorded Confirmed amlodipine 5 mg tablet 5 mg PO DAILY 02/07/22 10/23/22 fluticasone furoate 200 1 inh inhalation DAILY 02/07/22 10/23/22 mcg-vilanterol 25 mcg/dose inhalation powder (Breo Ellipta) metformin 500 mg tablet,extended 1,000 mg PO HS 02/07/22 10/23/22 release 24 hr montelukast 10 mg tablet 10 mg PO HS 02/07/22 10/23/22 pantoprazole 40 mg tablet,delayed 40 mg PO DAILY 02/07/22 10/23/22 release rosuvastatin 5 mg tablet 5 mg PO HS 02/07/22 10/23/22 Xyzal 5 mg PO DAILY 10/23/22 10/23/22 ciprofloxacin HCl 500 mg PO BID 10/23/22 10/23/22 estradiol 2 mg PO DAILY 10/23/22 10/23/22 lisinopril 20 1 tablet PO DAILY 10/23/22 10/23/22 mg-hydrochlorothiazide 25 mg tablet ondansetron 4 mg PO Q6-8H PRN Nausea 10/23/22 10/23/22 semaglutide 7 mg tablet (Rybelsus) 7 mg PO DAILY 10/23/22 10/23/22 Allergies Allergy/AdvReac Type Severity Reaction Status Date / Time No Known Allergies Allergy Verified 10/24/22 11:33 Review of Systems Review of Systems: All systems reviewed & are unremarkable except as noted in HPI and below PMFSH Past Medical History Medical History (Updated 10/24/22 @ 21:28 by Mayte Briceno MD) Asthma GERD (gastroesophageal reflux disease) History of diabetes mellitus History of hypertension Hyperlipidemia Family History Family History Father Carcinoma of colon Sibling Family history of malignant neoplasm of uterus Carcinoma of colon Mother Hypertension Sibling Kidney stone Sibling Esophageal cancer Social History Social History Smoking status: Never smoker Second hand tobacco smoke exposure: No Alcohol intake: never Substance use: never Substance use type: does not use Lack of Transportation: No Lack of Food: Never True Current Housing: I Have Housing Concerned About Future Housing: No Difficulty Paying Gas/Electric Bills: No Difficulty Paying for Meds: No Currently Unemployed: No Education: Associate Degree Difficulty w/ Childcare or Family Care: No Living arrangements: with family Spiritual care concerns: No Exam Narrative: GENERAL: Moderately distressed secondary to nausea and active vomiting HEAD: Normocephalic, atraumatic. EYES: PERRLA and EOMI. ENT: Nares clear, no rhinorrhea or epistaxis. Mucous membranes moist. NECK: Supple. CHEST: Clear to auscultation. No respiratory distress. HEART: Tachycardic, regular rhythm ABDOMEN: Soft, abdomen is nontender; positive left CVA tenderness EXTREMITIES: Normal range of motion. No edema. SKIN: Warm, dry, no rash. NEURO: No focal deficits. Alert and oriented x3. PSYCH: Normal mood and affect. Course Vital Signs Vital signs: Vital Signs Temperature 97.7 F 10/23/22 18:23 Pulse Rate 104 H 10/23/22 18:23 Respiratory Rate 18 10/23/22 18:23 Blood Pressure 134/69 10/23/22 18:23 Pulse Oximetry 97 10/23/22 18:23 Temperature 97.7 F 10/24/22 16:45 Pulse Rate 80 10/24/22 16:45 Respiratory Rate 16 10/24
[2022-10-23 19:40] LABS: Band Neutrophils Percent 6 % (0-6); Lymphocytes Absolute Manual 1.21 K/mm3 (1.1-4.5); Monocytes Percent Manual 3 % (3-9); Neutrophils Absolute Manual 11.88 K/mm3 (1.7-7.2); Neutrophils Percent Manual 82 % (46-73); Platelet Estimate Adequate (Adequate); Total Cells Counted 100
[2022-10-23 19:41] LABS: Schistocytes None Seen (NORMAL)
[2022-10-23] MEDS: KETOROLAC 15 MG/ML VIAL (*BKC) IV PUSH (19:54)
[2022-10-23] MEDS: ONDANSETRON INJ 4 MG/2 ML VIAL IV PUSH (19:55)
[2022-10-23] MEDS: SODIUM CHLORIDE 0.9% IV 1,000 ML 999 ML IV CONT (19:55)
[2022-10-23 20:07] LABS: Lactic Acid Reflex 1.6 mmol/L (0.7-2.0)
--- NOTE | 2022-10-23 21:28 | PM.IMHP ---
H&P: HPI History of Present Illness Date/Time: 10/23/22 21:28 Chief Complaint: Left lower back pain, vomiting Narrative: This is a 56-year-old lady with a past medical history including but not limited to diabetes, hypertension, GERD, hyperlipidemia presenting with vomiting.? Patient states that she has been having dysuria and increased urinary frequency for the last several days.? She called her doctor who prescribed oral antibiotics and Zofran.? States that she tried to take these this morning but she has been vomiting since 10 AM and has not been able to keep anything down.? States that she has also been having left flank pain for the last day.? She denies fevers, headache, numbness or weakness, chest pain, shortness of breath, cough, diarrhea. In the emergency department, the patient was started appropriately on IV fluid, pain medication IV antibiotic. A CT of the abdomen pelvis revealed an obstructing 5 x 2.5 mm stone at the left ureterovesicular junction with mild left hydronephrosis. Urinalysis shows pyuria. Urology was consulted. The patient was admitted under Hospital Medicine Service. Review of Systems Review of Systems: CONSTITUTIONAL: Negative for any fevers, chills, night sweats, tiredness, fatigue, malaise, anorexia or weight loss. CARDIOVASCULAR: Negative for chest pain, palpitations, dizziness, orthopnea or lower extremity edema. RESPIRATORY: Negative for shortness of breath, cough, wheezing, sputum. Gastrointestinal: Positive for nausea and vomiting. No diarrhea or abdominal pain. GENITOURINARY: Positive for frequency, dysuria, right costovertebral tenderness. GYNECOLOGIC: Negative for abnormal bleeding. HEMATOLOGIC: Negative for any abnormal bleeding or bruising. MUSCULOSKELETAL: Negative for joint swelling, stiffness or pain. SKIN: Negative for rashes, eruptions, lesions or dryness. NEUROLOGIC: Negative for any focal neurologic complaints. PSYCHIATRIC: Negative for anxiety, panic, depression. [facility] Past Medical History Medical History GERD (gastroesophageal reflux disease) History of diabetes mellitus History of hypertension Hyperlipidemia Family History Family History Father Carcinoma of colon Sibling Family history of malignant neoplasm of uterus Carcinoma of colon Mother Hypertension Sibling Kidney stone Sibling Esophageal cancer Social History Social History Smoking status: Never smoker Second hand tobacco smoke exposure: No Alcohol intake: never Substance use: never Substance use type: does not use Lack of Transportation: No Lack of Food: Never True Current Housing: I Have Housing Concerned About Future Housing: No Difficulty Paying Gas/Electric Bills: No Difficulty Paying for Meds: No Currently Unemployed: No Education: Associate Degree Difficulty w/ Childcare or Family Care: No Living arrangements: with family Spiritual care concerns: No Meds Home Medications and Allergies Home Medications Medication Instructions Recorded Confirmed Type amlodipine 5 mg tablet 5 mg PO DAILY 02/07/22 10/23/22 History fluticasone furoate 200 1 inh inhalation DAILY 02/07/22 10/23/22 History mcg-vilanterol 25 mcg/dose inhalation powder (Breo Ellipta) metformin 500 mg tablet,extended 1,000 mg PO HS 02/07/22 10/23/22 History release 24 hr montelukast 10 mg tablet 10 mg PO HS 02/07/22 10/23/22 History pantoprazole 40 mg tablet,delayed 40 mg PO DAILY 02/07/22 10/23/22 History release rosuvastatin 5 mg tablet 5 mg PO HS 02/07/22 10/23/22 History Xyzal 5 mg PO DAILY 10/23/22 10/23/22 History ciprofloxacin HCl 500 mg PO BID 10/23/22 10/23/22 History estradiol 2 mg PO DAILY 10/23/22 10/23/22 History lisinopril 20 1 tablet PO DAILY 10/23/22 10/23/22 History mg-hydrochlorothiazide 25 mg tablet
[2022-10-23 22:38] VITALS: BP 124/73; PULSE 106; RESP 16; O2SAT 96
--- NOTE | 2022-10-23 22:45 | ADMGEN ---
This patient, Domingo Francis, was admitted to Medical Room 254-01. Patient/family oriented to hospital policies and general routines including ID bracelet, bed and alarms, visiting hours, pain management, procedures, bathroom and other care routines, personal items, smoking policy, room service/diet, and visiting hours. Information on how to activate the Rapid Response Team has been discussed. Patient/Family are encouraged to report perceived risks to care and to ask questions if they do not understand what they are told or what they should do.
[2022-10-23 22:49] VITALS: BP 131/68; PULSE 101; RESP 18; TEMP 36.6; O2SAT 94; BMI 29.7
[2022-10-24] VITALS (17 sets, daily range): BP systolic 108–125; BP diastolic 59–73; PULSE 73–90; RESP 12–19; TEMP 36.2–36.8; O2SAT 94–100
--- NOTE | 2022-10-24 | ECG_ITS ---
Measurements Intervals [place] Rate: 80 P: 52 AK: 157 QRS: -4 QRSD: 103 T: 7 QT: 380 QTc: 439 Interpretive Statements SINUS RHYTHM CONSIDER INFERIOR INFARCT, AGE INDETERMINATE ABNORMAL ECG COMPARED TO ECG 02/14/2022 10:24:02 NO SIGNIFICANT CHANGES Electronically Signed On 10-24-2022 13:54:12 CDT by Vinayak Amador D.O.
[2022-10-24 07:05] LABS: Basophils Absolute Auto 0.1 K/mm3 (0.0-0.1); Basophils Percent Auto 0.4 % (0.2-1.2); Eosinophils Absolute Auto 0.1 K/mm3 (0-0.3); Eosinophils Percent Auto 0.7 % (0-4.4); Hematocrit 38.4 % (37.0-47.0); Hemoglobin 12.8 g/dL (12.0-15.0); Immature Granulocyte Absolute 0.05 K/mm3 (0.00-0.031); Immature Granulocyte Percent A 0.4 % (0-0.5); Lymphocytes Absolute Auto 1.66 K/mm3 (0.9-3.2); Mean Corpuscular HGB Conc 33.3 g/dl (32-36); Mean Corpuscular Hemoglobin 30.3 pg (26-34); Mean Corpuscular Volume 90.8 fl (80-100); Mean Platelet Volume 10.1 fl (7.4-10.4); Monocytes Absolute Auto 1.1 K/mm3 (0.1-0.6); Neutrophils Absolute Auto 8.9 K/mm3 (1.3-6.7); Neutrophils Percent Auto 75.5 % (45.5-73.1); Platelet Count Result 194 k/mm3 (150-375); Red Blood Count 4.23 M/mm3 (4.2-5.4); Red Cell Distribution Width 14.3 % (11.5-14.5); White Blood Count 11.8 K/mm3 (4.5-10.0)
--- NOTE | 2022-10-24 07:23 | PM.IMPN ---
Progress Note: A&P Assessment and Plan (1) Renal calculus, left: Code(s): N20.0 - Calculus of kidney Status: Acute Assessment and Plan: -5 x 2.5 mm obstructing stone at the left ureterovesical junction with mild left hydronephrosis -UTI present on U/A. Culture pending collection. WBC 12.5 on admission. Received Rocephin x 1 in the ED. continue IV Rocephin. -Urology consulted, appreciate recs -PRN zofran for nausea, PRN ibuprofen, oxy, and IVP fentayl for pain control. Use oral agents first and then if patient is unable to tolerate orals can utilize IV pain medications. (2) UTI (urinary tract infection): Code(s): N39.0 - Urinary tract infection, site not specified Status: Acute Assessment and Plan: -on IV Rocephin -culture pending -trend WBC -afebrile -lactic normal (3) History of hypertension: Code(s): Z86.79 - Personal history of other diseases of the circulatory system Status: Acute Assessment and Plan: -Blood pressure soft this am. Holding home antihypertensives at this time. Will resume when appropriate. (4) History of diabetes mellitus: Code(s): Z86.39 - Personal history of other endocrine, nutritional and metabolic disease Status: Acute Assessment and Plan: -on metformin at home, holding while inpatient. Unsure of Hgb A1c, will obtain on labs. -Accu checks ac/hs. sliding scale insulin as needed. -POC 138 this morning (5) Hyperlipidemia: Code(s): E78.5 - Hyperlipidemia, unspecified Status: Acute Assessment and Plan: -on rosuvastatin at home. May continue here. -ALT slightly elevated -check am lipid panel (6) GERD (gastroesophageal reflux disease): Code(s): K21.9 - Gastro-esophageal reflux disease without esophagitis Status: Acute Assessment and Plan: -stable on protonix 40 mg PO daily. Okay to resume. Subjective Date/time seen: 10/24/22 07:23 Interval history: This is a 56 year old female with a PMH of DM, HTN, GERD, and HLD. She comes to the ED with complaints of nausea, vomiting, and left flank pain. She also reports dysuria and urinary frequency for the last several days. She notified her PCP this week of her symptoms and was given PO antibiotics and Zofran. Unfortunately she was unable to tolerate the oral antibiotics because of vomiting. Initial workup shows U/A with + nitrate, +1 leukocyte esterase, and +4 bacteria. Her WBC is elevated at 13.5 but she remains afebrile. CT abdomen and pelvis shows an obstructing 5x2.5 mm stone at the left ureterovesical junction with mild left hydronephrosis. has been consulted for likely cystoscopy with stenting. A urine culture has been ordered but is pending collection, blood cultures pending. 10/24: Spoke with patient this morning tonight with her at the bedside. She looks well and states that she feels much better than when she 1st came in. She denies pain at this time and also states that she has not had any nausea. She received her antibiotics this morning and they did not make her nauseous. She is supposed to go with urology today around 4:00 p.m. for procedure. She will remain NPO until afterwards in which then she can resume her normal diabetic diet. Anticipate her to discharge tomorrow after procedure. Review of Systems Review of Systems: All systems reviewed & are unremarkable except as noted in HPI and below Exam Narrative: General: well-nourished, well-appearing 56-year-old female, sitting up in bed, comfortable, NARD Neuro: awake, alert and oriented x4, speech clear, no focal neuro deficits noted HEENMT: normocephalic, atraumatic, EOMI, sclerae anicteric, moist oral mucosa Respiratory: Clear to auscultation bilaterally without crackles, rhonchi or wheezes, nonlabored breathing Cardio: regular rate, regular rhythm with S1-S2 Abdomen: nondistended, normoactive bowel sounds, soft, nontender to palpation Extremities: no anjali
--- NOTE | 2022-10-24 07:56 | WPDURCON ---
Assessment and Plan Assessment and plan (1) Renal calculus, left: Code(s): N20.0 - Calculus of kidney Status: Acute Assessment and Plan: Left ureteral stone rather than calculus of the kidney (2) UTI (urinary tract infection): Code(s): N39.0 - Urinary tract infection, site not specified Status: Acute Assessment and Plan: Urine culture is pending. This is not clearly a urinary tract infection but instead an abnormal urinalysis She is not currently symptomatic for infection. Urine culture is pending Plan Left ureteral stone with mild hydronephrosis Abnormal urinalysis We discussed trial of stone passage versus intervention. She would like to have her stone extracted. I think this is reasonable given the abnormal urinalysis. She has no prominent symptoms of infection currently. Urine culture is pending. I will make sure she is on antibiotics. I will attempt to get her on the OR schedule today for a left ureteroscopy with stone extraction. She understands risks of bleeding, infection, inability to extract the stone, chance the stone has already passed. She understands feel the stent in place. She agrees to proceed. Urology Consult Note HPI Date Seen: 10/24/22 Requesting Physician: Sherlyn Mayo MD Primary Care Provider: Alda Alvarez, PA-C Consult Narrative Narrative: Domingo Francis is a 56 year old female with no prior history of nephrolithiasis. She presented to the emergency room yesterday with a 1 day history of flank pain which came on while she was flow seen a birthday green party for . She did not have fevers. She did endorse dysuria. She had no vomiting. She presented to the emergency room. She was diagnosed with a 5 x 2.5 mm left distal ureteral stone. She was kept in the hospital overnight. She no longer has prominent urinary symptoms. She is not currently in pain. They have been straining her urine and the stone has failed the past. Her white count is 11. She does have an abnormal urinalysis with white cells, red cells, nitrate. She remains afebrile. Review of Systems Review of Systems: All systems reviewed & are unremarkable except as noted in HPI and below PMFSH Past Medical History Medical History GERD (gastroesophageal reflux disease) History of diabetes mellitus History of hypertension Hyperlipidemia Family History Family History Father Carcinoma of colon Sibling Family history of malignant neoplasm of uterus Carcinoma of colon Mother Hypertension Sibling Kidney stone Sibling Esophageal cancer Social History Social History Smoking status: Never smoker Second hand tobacco smoke exposure: No Alcohol intake: never Substance use: never Substance use type: does not use Lack of Transportation: No Lack of Food: Never True Current Housing: I Have Housing Concerned About Future Housing: No Difficulty Paying Gas/Electric Bills: No Difficulty Paying for Meds: No Currently Unemployed: No Education: Associate Degree Difficulty w/ Childcare or Family Care: No Living arrangements: with family Spiritual care concerns: No Meds Home Medications and Allergies Home Medications Medication Instructions Recorded Confirmed Type amlodipine 5 mg tablet 5 mg PO DAILY 02/07/22 10/23/22 History fluticasone furoate 200 1 inh inhalation DAILY 02/07/22 10/23/22 History mcg-vilanterol 25 mcg/dose inhalation powder (Breo Ellipta) metformin 500 mg tablet,extended 1,000 mg PO HS 02/07/22 10/23/22 History release 24 hr montelukast 10 mg tablet 10 mg PO HS 02/07/22 10/23/22 History pantoprazole 40 mg tablet,delayed 40 mg PO DAILY 02/07/22 10/23/22 History release rosuvastatin 5 mg tablet 5 mg PO HS 02/07/22 10/23/22 History Xyzal 5 mg PO CAROLANN
--- NOTE | 2022-10-24 08:02 | WPDHPUPDATE1 ---
History and Physical Update Update Date/Time: 10/24/22 08:02 History and Physical has been reviewed, including an updated exam of the patient. There are NO changes in the patient's condition. Risks, benefits, and alternatives have been discussed and questions answered. Patient agrees to proceed with procedure.
[2022-10-24 08:09] LABS: Hemoglobin A1C 5.6 % (<5.7)
[2022-10-24] MEDS: LORATADINE 10 MG TABLET PO (08:25)
[2022-10-24] MEDS: estradioL 1 MG TABLET 2 MG PO (08:25)
[2022-10-24] MEDS: amLODIPine BESYLATE 5 MG TABLET PO (08:25)
[2022-10-24] MEDS: PANTOPRAZOLE 40 MG TABLET PO (08:25)
[2022-10-24] MEDS: SODIUM CHLORIDE 0.9% IV 1,000 ML 100 ML IV CONT (08:30)
[2022-10-24] MEDS: cefTRIAXone 2 GM/NS 100 ML 2 GM/100 ML BAG IVPB (09:18)
--- NOTE | 2022-10-24 11:00 | WPDANESEPPF ---
Anes - Initial Pre Proc Eval Procedure: Operation Date: 10/24/22 16:00 Proposed Procedures p Cystoscopy, Left Ureteroscopy, Possible Left Retrograde Pyelogram, Possible Left Stone Extraction, Possible Left Stent Placement, Possible Holmium Laser Procedure - Stewart Whelan MD Date/Time: 10/24/22 11:00 Surgeon: Sherlyn Mayo MD Pre Op Diagnosis: Infected Kidney Stone Patient Data Age: 56 Gender: F Height: 1.65 m Weight: 81.1 kg Last Vital Signs Temp 36.8 C 10/24/22 05:47 Pulse 73 10/24/22 05:47 Resp 17 10/24/22 05:47 BP 108/59 L 10/24/22 05:47 Pulse Ox 97 10/24/22 05:47 O2 Del Method Room Air 10/24/22 00:00 Allergies Allergy/AdvReac Type Severity Reaction Status Date / Time No Known Allergies Allergy Verified 10/24/22 11:33 Home Medications Medication Instructions Recorded Confirmed Type amlodipine 5 mg tablet 5 mg PO DAILY 02/07/22 10/23/22 History fluticasone furoate 200 1 inh inhalation DAILY 02/07/22 10/23/22 History mcg-vilanterol 25 mcg/dose inhalation powder (Breo Ellipta) metformin 500 mg tablet,extended 1,000 mg PO HS 02/07/22 10/23/22 History release 24 hr montelukast 10 mg tablet 10 mg PO HS 02/07/22 10/23/22 History pantoprazole 40 mg tablet,delayed 40 mg PO DAILY 02/07/22 10/23/22 History release rosuvastatin 5 mg tablet 5 mg PO HS 02/07/22 10/23/22 History Xyzal 5 mg PO DAILY 10/23/22 10/23/22 History estradiol 2 mg PO DAILY 10/23/22 10/23/22 History lisinopril 20 1 tablet PO DAILY 10/23/22 10/23/22 History mg-hydrochlorothiazide 25 mg tablet ondansetron 4 mg PO Q6-8H PRN Nausea 10/23/22 10/23/22 History semaglutide 7 mg tablet (Rybelsus) 7 mg PO DAILY 10/23/22 10/23/22 History Laboratory Tests 10/23/22 10/23/22 10/23/22 19:00 19:10 19:52 WBC 13.5 H K/mm3 (4.5-10.0) RBC 4.93 M/mm3 (4.2-5.4) Hgb 14.9 g/dL (12.0-15.0) Hct 44.2 % (37.0-47.0) MCV 89.7 fl (80-100) MCH 30.2 pg (26-34) MCHC 33.7 g/dl (32-36) RDW 14.0 % (11.5-14.5) Plt Count 194 k/mm3 (150-375) MPV 9.6 fl (7.4-10.4) Immature Gran % (Auto) Not Reportable Neut % (Auto) Not Reportable Lymph % (Auto) Not Reportable Simpson % (Auto) Not Reportable Eos % (Auto) Not Reportable Baso % (Auto) Not Reportable Lymph # (Auto) Not Reportable Simpson # (Auto) Not Reportable Eos # (Auto) Not Reportable Baso # (Auto) Not Reportable Abs Immat Gran (auto) Not Reportable Absolute Neuts (auto) Not Reportable Absolute Nucleated RBC Not Reportable Total Counted 100 Neutrophils % (Manual) 82 H % (46-73) Band Neutrophils % 6 % (0-6) Lymphocytes % (Manual) 9.0 L % (18-44) Monocytes % (Manual) 3 % (3-9) Nucleated RBC % Not Reportable Abs Neuts (Manual) 11.88 H K/mm3 (1.7-7.2) Abs Lymphs (Manual) 1.21 K/mm3 (1.1-4.5) Abs Monocytes (Manual) 0.40 K/mm3 (0.1-0.90) Platelet Estimate Adequate (Adequate) Schistocytes None seen (NORMAL) Sodium 142 mmol/L (137-145) Potassium 3.5 mmol/L (3.4-5.0) Chloride 101 mmol/L (98-107) Carbon Dioxide 33 H mmol/L (22-30) Anion Gap 8 mmol/L (8-16) BUN 25 H mg/dL (7-17) Creatinine 0.80 mg/dL (0.7-1.0) Estim Creat Clear Calc 69 ml/min Estimated GFR > 60 (59 - ) Glucose 138 H mg/dL (65-110) Hemoglobin A1c Lactic Acid 1.6 mmol/L (0.7-2.0) Calcium 9.6 mg/dL (8.4-10.2) Total Bilirubin 0.8 mg/dL (0.2-1.3) AST 32 U/L (14-36) ALT 50 H U/L (6-35) Alkaline Phosphatase 94 U/L (38-126) To
[2022-10-24 11:40] LABS: Glucose Point of Care 117 mg/dl (65-105)
[2022-10-24] MEDS: LIDOCAINE HCL 2% GEL UROJET 10 ML PKG MUCOUS MEM (12:21)
--- NOTE | 2022-10-24 12:30 | P.OP_ITS ---
Procedure Note - Detailed Date of Procedure 10/24/22 Pre-op Diagnosis left distal ureteral stone Post-op Diagnosis Same Procedure Performed Cystoscopy, left retrograde pyelogram, left ureteroscopy, basket stone extraction, stent placement Surgeon Stewart Whelan MD Anesthesia General Indications This is a woman the distal stone an abnormal urinalysis. She is here for intervention. She understands risks of bleeding, infection, damage to urinary tract, inability remove the stone. She agrees to proceed Findings Left distal ureteral stone extracted intact Description of Procedure She was correctly identified. Informed consent obtained. She from the operating room. She was given general anesthesia. She was placed in dorsal lithotomy position. Genitalia prepped draped sterile fashion. Time-out perfo rmed. She was already on appropriate antibiotics. Cystoscopy revealed a normal-appearing bladder without tumors or abnormalities. There was no redness or erythema. I did a gentle retrograde pyelogram on the left. She had a delicate distal ureter with hydronephrosis proximal to a filling defect. There was no extravasation. I placed a guidewire to the kidney. I dilated the ureter the 810 dilator. I performed rigid ureteroscopy. The stone was encountered the distal ureter. It was basketed and extracted intact. I then reperformed ureteroscopy and so no ureteral abnormalities. No perforation. No further stones. I placed a 4.8 variable length stent. Proximal coil the renal pelvis. Distal coil the bladder. She was then awakened and transferred to the PACU with stable condition once her bladder was drained Implants 4.8 variable length stent Estimated Blood Loss 1 Urine Output 300 Packing No Pathology Yes (Stone) Complications No immediate complications Condition Stable Disposition PACU
--- NOTE | 2022-10-24 12:31 | PCCCNOTE ---
On 10/24/22, the student, [Ericka Sheth ], provided care and completed [facility] documentation on this patient. I have reviewed the student's documentation and agree with the findings.
[2022-10-24] MEDS: LACTATED RINGERS 1,000 ML 30 ML IV CONT (12:34)
[2022-10-24 13:19] LABS: Glucose Point of Care 105 mg/dl (65-105)
[2022-10-24] MEDS: oxyBUTYnin CHLORIDE 5 MG TABLET PO ×2 (14:34→17:38)
--- NOTE | 2022-10-24 16:35 | WPDUROPN2 ---
Subjective Subjective Date/Time Seen: 10/24/22 16:35 Interval history: Stone extracted today intact. Stent placed. We have no one house tomorrow. Please call if questions. She can be discharged home once urine culture returns on culture specific antibiotics for 7 days. We will call to arrange stent removal. Objective Data Vital Signs Vital Signs: Vital Signs - 24 hr 10/23/22 18:23 10/23/22 22:38 10/23/22 22:49 Temperature 97.7 F 97.8 F Pulse Rate 104 H 106 H 101 H Respiratory Rate 18 16 18 Blood Pressure 134/69 124/73 131/68 Pulse Oximetry 97 96 94 Oxygen Delivery Oxygen Flow Rate 10/24/22 00:00 10/24/22 00:00 10/24/22 04:00 Temperature Pulse Rate 86 84 Respiratory Rate Blood Pressure Pulse Oximetry Oxygen Delivery Room Air Oxygen Flow Rate 10/24/22 05:47 10/24/22 08:00 10/24/22 11:03 Temperature 98.3 F 97.6 F Pulse Rate 73 73 79 Respiratory Rate 17 17 18 Blood Pressure 108/59 L 122/60 Pulse Oximetry 97 97 96 Oxygen Delivery Room Air Room Air Oxygen Flow Rate 10/24/22 08:00 10/24/22 12:34 10/24/22 12:50 Temperature 97.8 F Pulse Rate 84 81 90 Respiratory Rate 19 18 Blood Pressure 116/64 115/67 Pulse Oximetry 100 100 Oxygen Delivery Simple Face Mask Simple Face Mask Oxygen Flow Rate 6 6 10/24/22 12:55 10/24/22 13:05 10/24/22 13:20 Temperature Pulse Rate 76 78 Respiratory Rate 14 16 Blood Pressure 122/67 118/60 Pulse Oximetry 99 96 96 Oxygen Delivery Room Air Room Air Room Air Oxygen Flow Rate 10/24/22 13:35 10/24/22 13:50 10/24/22 14:20 Temperature 98.0 F Pulse Rate 75 87 80 Respiratory Rate 16 12 17 Blood Pressure 117/66 120/73 121/63 Pulse Oximetry 95 97 94 Oxygen Delivery Room Air Room Air Oxygen Flow Rate 10/24/22 14:35 10/24/22 15:11 Temperature 97.5 F L 97.2 F L Pulse Rate 80 83 Respiratory Rate 17 16 Blood Pressure 123/61 125/60 Pulse Oximetry 96 98 Oxygen Delivery Oxygen Flow Rate Intake/Output Intake/Output: Intake & Output 10/21/22 10/22/22 10/23/22 10/24/22 23:59 23:59 23:59 23:59 Intake Total 1050 500 Output Total 300 900 Balance 750 -400 Meds/Results Medications: Active Medications Generic Name Dose Route Start Last Admin Trade Name Freq PRN Reason Stop Dose Admin Amlodipine Besylate 5 mg 10/24/22 09:00 10/24/22 08:25 Amlodipine Besylate 5 Mg Tablet PO 5 mg DAILY BRIAN Administration Dextrose 12.5 gm 10/24/22 07:51 Dextrose 50% 25 Gm/50 Ml Syringe IV PUSH PRN PRN Hypoglycemia Protocol Estradiol 2 mg 10/24/22 09:00 10/24/22 08:25 Estradiol 1 Mg Tablet PO 11/23/22 08:59 2 mg DAILY BRIAN Administration Fentanyl Citrate 25 mcg 10/24/22 07:42 Fentanyl Citrate Inj (*Crx) 100 Mcg/2 Ml Vial IV PUSH Q4H PRN Pain Rated 7-10 Glucagon 1 mg 10/24/22 07:51 Glucagon For Inj 1 Mg Vial IM PRN PRN Hypoglycemia Protocol Glucose 15 gm 10/24/22 07:51 Glucose Oral Gel 15 Gm Of Glucse In 37.5 Gm Tube PO PRN PRN Hypoglycemia Protocol Sodium Chloride 1,000 mls @ 100 mls/hr 10/24/22 07:45 10/24/22 08:30 Normal Saline Iv IV CONT 100 mls/hr .Q10H BRIAN Administration Dextrose 1,000 mls @ 100 mls/hr 10/24/22 07:51 Dextrose 5% 1,000 Ml IVPB PRN PRN Hypoglycemia Protocol Ceftriaxone Sodium 2 gm in 100 mls @ 200 mls/hr 10/24/22 09:00 10/24/22 09:18 Rocephin 2 Gm/Ns 100 Ml IVPB 200 mls/hr Q24H BRIAN Administration Ibuprofen 400 mg 10/24/22 07:42 Ibuprofen 400 Mg Tablet PO Q6H PRN Pain Rated 1-3 Insulin Aspart 2 - 5 units 10/24/22 08:00 10/24/22 11:35 Insulin Aspart (*Bkc) 100 Units/Ml SUB-Q Not Given TIDWM BRIAN Protocol Insulin Aspart 1 - 2 units 10/24/22 21:00 Insulin Aspart (*Bkc) 100 Units/Ml SUB-Q HS [facility] Protocol Loratadine 10 mg 10/24/22 09:00 10/24/22 08:25 Loratadine 10 Mg Tablet PO 11/23/22
[2022-10-24 17:30] LABS: Glucose Point of Care 187 mg/dl (65-105)
[2022-10-24] MEDS: PHENAZOPYRIDINE HCL 100 MG TABLET 200 MG PO (17:38)
[2022-10-24 20:07] LABS: Glucose Point of Care 128 mg/dl (65-105)
[2022-10-24] MEDS: ROSUVASTATIN 5 MG TABLET PO (20:15)
[2022-10-24] MEDS: MONTELUKAST SODIUM 10 MG TABLET PO (20:16)
--- NOTE | 2022-10-24 20:43 | PHAR ---
PT'S HOME MED XYZAL 5 MG VERIFIED BY PHARMACY
[2022-10-25] MEDS: SODIUM CHLORIDE 0.9% IV 1,000 ML 100 ML IV CONT (02:23)
[2022-10-25 06:08] LABS: Basophils Percent Auto 0.2 % (0.2-1.2); Eosinophils Percent Auto 0.2 % (0-4.4); Hematocrit 36.9 % (37.0-47.0); Immature Granulocyte Absolute 0.03 K/mm3 (0.00-0.031); Immature Granulocyte Percent A 0.3 % (0-0.5); Lymphocytes Absolute Auto 1.23 K/mm3 (0.9-3.2); Lymphocytes Percent Auto 13.9 % (18.3-44.2); Mean Corpuscular HGB Conc 32.5 g/dl (32-36); Mean Corpuscular Hemoglobin 29.8 pg (26-34); Mean Corpuscular Volume 91.6 fl (80-100); Mean Platelet Volume 10.3 fl (7.4-10.4); Monocytes Absolute Auto 0.6 K/mm3 (0.1-0.6); Monocytes Percent Auto 7.3 % (2.6-8.5); Neutrophils Absolute Auto 6.9 K/mm3 (1.3-6.7); Neutrophils Percent Auto 78.1 % (45.5-73.1); Platelet Count Result 181 k/mm3 (150-375); Red Blood Count 4.03 M/mm3 (4.2-5.4); White Blood Count 8.8 K/mm3 (4.5-10.0)
[2022-10-25 06:26] LABS: Alanine Aminotransferase 32 U/L (6-35); Albumin Level 3.3 g/dL (3.5-5.1); Alkaline Phosphatase 63 U/L (38-126); Anion Gap 5 mmol/L (8-16); Aspartate Amino Transferase 20 U/L (14-36); Bilirubin,Total 0.5 mg/dL (0.2-1.3); Blood Urea Nitrogen 14 mg/dL (7-17); Calcium 8.4 mg/dL (8.4-10.2); Carbon Dioxide 32 mmol/L (22-30); Chloride 106 mmol/L (98-107); Cholesterol 108 mg/dL (0-200); Estimated CRCL calculation 92 ml/min; Estimated Glomerular Filt Rate > 60; Glucose 109 mg/dL (65-110); HDL Direct 26 mg/dL; Potassium 3.3 mmol/L (3.4-5.0); Sodium 143 mmol/L (137-145); Triglycerides 79 mg/dL (<150)
[2022-10-25 06:27] LABS: LDL Cholesterol Direct 65 mg/dL
[2022-10-25 06:56] VITALS: BP 124/59; PULSE 65; RESP 18; TEMP 36.6; O2SAT 96
[2022-10-25 07:33] VITALS: PULSE 67; RESP 18; O2SAT 94
[2022-10-25] MEDS: FLUTICASONE/SALMETEROL 230-21 MCG INHALER 1 PUFF 2 PUFF INHALATION (07:33)
[2022-10-25 08:00] VITALS: PULSE 67; RESP 18; O2SAT 94
[2022-10-25] MEDS: estradioL 1 MG TABLET 2 MG PO (08:21)
[2022-10-25] MEDS: PHENAZOPYRIDINE HCL 100 MG TABLET 200 MG PO (08:21)
[2022-10-25] MEDS: amLODIPine BESYLATE 5 MG TABLET PO (08:21)
[2022-10-25] MEDS: PANTOPRAZOLE 40 MG TABLET PO (08:21)
[2022-10-25] MEDS: oxyBUTYnin CHLORIDE 5 MG TABLET PO (08:21)
[2022-10-25] MEDS: cefTRIAXone 2 GM/NS 100 ML 2 GM/100 ML BAG IVPB (08:21)
[2022-10-25 08:37] LABS: Glucose Point of Care 110 mg/dl (65-105)
--- NOTE | 2022-10-25 09:05 | PM.IMPN ---
Progress Note: A&P Assessment and Plan (1) Renal calculus, left: Code(s): N20.0 - Calculus of kidney Status: Acute Assessment and Plan: -5 x 2.5 mm obstructing stone at the left ureterovesical junction with mild left hydronephrosis -UTI present on U/A. Culture pending collection. WBC 12.5 on admission. Received Rocephin x 1 in the ED. continue IV Rocephin. -Urology consulted, appreciate recs -PRN zofran for nausea, PRN ibuprofen, oxy, and IVP fentayl for pain control. Use oral agents first and then if patient is unable to tolerate orals can utilize IV pain medications. -postop day 1 from stone extraction with Urology. Stent was also placed. She needs to follow up with Urology in [address] Whelan's note urology office will call her for follow-up. Urine culture from 10/23 with no growth. Have reached out to Dr. Whelan to find out if she needs antibiotics at discharge. Otherwise she is medically ready for discharge will likely leave today. (2) UTI (urinary tract infection): Code(s): N39.0 - Urinary tract infection, site not specified Status: Acute Assessment and Plan: -culture negative, antibiotics needed. -trend WBC, normal -afebrile -lactic normal (3) History of hypertension: Code(s): Z86.79 - Personal history of other diseases of the circulatory system Status: Acute Assessment and Plan: -Blood pressure soft this am. Holding home antihypertensives at this time. Will resume when appropriate. (4) History of diabetes mellitus: Code(s): Z86.39 - Personal history of other endocrine, nutritional and metabolic disease Status: Acute Assessment and Plan: -on metformin at home, holding while inpatient. Unsure of Hgb A1c, will obtain on labs. -Accu checks ac/hs. sliding scale insulin as needed. -POC 138 this morning (5) Hyperlipidemia: Code(s): E78.5 - Hyperlipidemia, unspecified Status: Acute Assessment and Plan: -on rosuvastatin at home. May continue here. -ALT slightly elevated -check am lipid panel (6) GERD (gastroesophageal reflux disease): Code(s): K21.9 - Gastro-esophageal reflux disease without esophagitis Status: Acute Assessment and Plan: -stable on protonix 40 mg PO daily. Okay to resume. Subjective Date/time seen: 10/25/22 09:05 Interval history: This is a 56 year old female with a PMH of DM, HTN, GERD, and HLD. She comes to the ED with complaints of nausea, vomiting, and left flank pain. She also reports dysuria and urinary frequency for the last several days. She notified her PCP this week of her symptoms and was given PO antibiotics and Zofran. Unfortunately she was unable to tolerate the oral antibiotics because of vomiting. Initial workup shows U/A with + nitrate, +1 leukocyte esterase, and +4 bacteria. Her WBC is elevated at 13.5 but she remains afebrile. CT abdomen and pelvis shows an obstructing 5x2.5 mm stone at the left ureterovesical junction with mild left hydronephrosis. has been consulted for likely cystoscopy with stenting. A urine culture has been ordered but is pending collection, blood cultures pending. 10/24: Spoke with patient this morning tonight with her at the bedside. She looks well and states that she feels much better than when she 1st came in. She denies pain at this time and also states that she has not had any nausea. She received her antibiotics this morning and they did not make her nauseous. She is supposed to go with urology today around 4:00 p.m. for procedure. She will remain NPO until afterwards in which then she can resume her normal diabetic diet. Anticipate her to discharge tomorrow after procedure. Review of Systems Review of Systems: All systems reviewed & are unremarkable except as noted in HPI and below Exam Narrative: General: well-nourished, well-appearing 56-year-old female, sitting up in bed, comfortable, NARD Neuro:
[2022-10-25] MEDS: POTASSIUM CHLORIDE 20 MEQ PACKET (FOR LIQUID) 40 MEQ PO (09:45)
--- NOTE | 2022-10-25 10:40 | PM.DS ---
DS: Admitting Diagnosis Discharge Date October 25 Admitting Diagnosis nephrolithiasis DS: Discharge Diagnosis Discharge Diagnosis (1) Renal calculus, left: Code(s): N20.0 - Calculus of kidney Status: Acute Assessment and Plan: -5 x 2.5 mm obstructing stone at the left ureterovesical junction with mild left hydronephrosis -UTI present on U/A. Culture pending collection. WBC 12.5 on admission. Received Rocephin x 1 in the ED.? continue IV Rocephin. -Urology consulted, appreciate recs -PRN zofran for nausea, PRN ibuprofen, oxy, and IVP fentayl for pain control. Use oral agents first and then if patient is unable to tolerate orals can utilize IV pain medications. 10/25: POD 1 from stone extraction with Urology. Dr Whelan is okay with discharge today. Urine culture with no growth so no antibiotics needed. She needs to follow up with urology in 1 week. (2) UTI (urinary tract infection): Code(s): N39.0 - Urinary tract infection, site not specified Status: Acute Assessment and Plan: -trend WBC -afebrile -lactic normal 10/25: WBC normal, Culture negative (3) History of hypertension: Code(s): Z86.79 - Personal history of other diseases of the circulatory system Status: Acute Assessment and Plan: -Blood pressure soft this am. Holding home antihypertensives at this time. Will resume when appropriate. 10/25: Vitals reviewed. Blood pressure back to baseline. Resume medications at dc (4) History of diabetes mellitus: Code(s): Z86.39 - Personal history of other endocrine, nutritional and metabolic disease Status: Acute Assessment and Plan: -on metformin at home, holding while inpatient. Unsure of Hgb A1c, will obtain on labs. -Accu checks ac/hs. sliding scale insulin as needed. -POC 138 this morning 10/25: Received IV contrast dye yesterday for procedure. Hold Metformin for now, resume on October 27. (5) Hyperlipidemia: Code(s): E78.5 - Hyperlipidemia, unspecified Status: Acute Assessment and Plan: -on rosuvastatin at home. May continue here. -ALT slightly elevated -check am lipid panel 10/25: ALT normal. Lipid panel looks okay minus HDL 26. Follow up with PCP (6) GERD (gastroesophageal reflux disease): Code(s): K21.9 - Gastro-esophageal reflux disease without esophagitis Status: Acute Assessment and Plan: -stable on protonix 40 mg PO daily. Okay to resume. DS: Summary Hospital Course Reason for hospitalization: kidney stone Hospital Course: Interval history: This is a 56 year old female with a PMH of DM, HTN, GERD, and HLD. She comes to the ED with complaints of nausea, vomiting, and left flank pain. She also reports dysuria and urinary frequency for the last several days. She notified her PCP this week of her symptoms and was given PO antibiotics and Zofran. Unfortunately she was unable to tolerate the oral antibiotics because of vomiting. Initial workup shows U/A with + nitrate, +1 leukocyte esterase, and +4 bacteria. Her WBC is elevated at 13.5 but she remains afebrile. CT abdomen and pelvis shows an obstructing 5x2.5 mm stone at the left ureterovesical junction with mild left hydronephrosis. has been consulted for likely cystoscopy with stenting. A urine culture has been ordered but is pending collection, blood cultures pending. 10/24: ? Spoke with patient this morning tonight with her at the bedside.? She looks well and states that she feels much better than when she 1st came in.? She denies pain at this time and also states that she has not had any nausea.? She received her antibiotics this morning and they did not make her nauseous.? She is supposed to go with urology today around 4:00 p.m. for procedure.? She will remain NPO until afterwards in which then she can resume her normal diabetic diet. ? Anticipate her to discharge tomorrow after procedure. 10/25: POD 1 from stone extraction with stent placement. Cecilia
[2022-10-25 11:02] VITALS: BP 128/60; PULSE 64; RESP 18; TEMP 36.5; O2SAT 96
== END 2022-10-25 11:05 | disposition home or self-care (01) ==
LOC: ANHED 18:46 → ANH2MED 22:05
PROVIDERS: Nurse Practitioner Acute Care; Urology; Admitting Provider Internal Medicine; Emergency Provider Emergency Medicine; PCP Physician Assistant; Visit Provider Internal Medicine
PROC: (CPT 52352; principal; 2022-10-24 16:00)
DX: N13.2 Hydronephrosis with renal and ureteral calculous obstruction (principal); N39.0 Urinary tract infection, site not specified; E11.9 Type 2 diabetes mellitus without complications; J45.909 Unspecified asthma, uncomplicated; K21.9 Gastro-esophageal reflux disease without esophagitis; I10 Essential (primary) hypertension; R00.0 Tachycardia, unspecified; E78.5 Hyperlipidemia, unspecified; R10.9 Unspecified abdominal pain; R94.31 Abnormal electrocardiogram [ECG] [EKG]; D72.829 Elevated white blood cell count, unspecified; Z79.52 Long term (current) use of systemic steroids; Z79.84 Long term (current) use of oral hypoglycemic drugs; Z79.3 Long term (current) use of hormonal contraceptives; Z79.899 Other long term (current) drug therapy
CPT/HCPCS: 52352; 52332; 36415; 74177; 74420; 80053; 80061; 81001; 82365; 82948; 83036; 83605; 83690; 85025; 87040; 87086; 88300; 93005; 94640; 96365; 96375; 99285; A9270; C1769; C2617; G0378; J0330; J0696; J1100; J1885; J2250; J2405; J2704; J3010; J7030; J7120; Q9966; Q9967

== ENCOUNTER 2023-02-18 09:15 | Outpatient (CLI) | payer BC, SELFPAY ==
--- NOTE | ~2023-02-18 | MM_ITS ---
EXAMINATION: MM screening [facility] BI w biju HISTORY: Screening mammogram TECHNIQUE: Craniocaudal and mediolateral oblique 3-D tomosynthesis images were obtained and synthetic 2-D images were generated. CAD analysis was submitted and interpreted. COMPARISON: 12/01/2021, 09/15/2020, 07/16/2019 BREAST PARENCHYMAL COMPOSITION: The breasts are heterogeneously dense, which may obscure small masses . FINDINGS: No suspicious mass, calcification, or architectural distortion are identified in either neida ast to suggest malignancy. There has been no suspicious interval change. IMPRESSION: 1. No mammographic evidence of malignancy. 2. Recommend routine screening mammography in one year. BI-RADS Category 1: Negative Reviewed, dictated and finalized at location A.
== END 2023-02-18 09:16 ==
LOC: MICIMG 09:16
PROVIDERS: PCP Obstetrics & Gynecology; Visit Provider Obstetrics & Gynecology
DX: Z12.31 Encounter for screening mammogram for malignant neoplasm of breast (principal)
CPT/HCPCS: 77063; 77067

== ENCOUNTER 2023-05-25 08:14 | Outpatient (CLI) | payer BC, SELFPAY ==
--- NOTE | ~2023-05-25 | XR_ITS ---
XR abdomen/kub 1V DATE: 05/25/2023 08:37 INDICATION: Left ureteral stone TECHNIQUE: 2 AP views COMPARISON: 10/24/2022 left retrograde pyelogram 10/23/2022 CT abdomen pelvis FINDINGS: No urinary tract calcified calculus is detected. Occasional bilateral pelvic phleboliths. The psoas shadows are intact. No visceromegaly. No evidence of bowel obstruction. The lung bases are clear. Heart size appears normal. IMPRESSION: No urinary tract calcification is detected Reviewed, dictated and finalized at Location A. Reviewed, dictated and finalized at location L. OR ACCOUNTS PAYABLE CLERK
--- NOTE | ~2023-05-25 | US_ITS ---
Renal-Bladder ultrasound Clinical History: Left ureteral stone Technique: Real-time sonographic imaging of the kidneys and urinary bladder was performed. Findings: The right kidney measures 10.1 cm in length and the left kidney measures 9.6 cm. There is n o hydronephrosis or renal calculus identified. Renal cortical echogenicity is within normal limits. N o solid renal mass lesion is identified. Right renal cyst present. The urinary bladder is moderately distended at the time of this exam. No intraluminal echoes are iden tified. No abnormal wall thickening is seen. Impression: No significant abnormality. Reviewed, dictated and finalized at location . URY CRACKING TESTER Impression: No significant abnormality.
== END 2023-05-25 08:15 ==
PROVIDERS: PCP Urology; Visit Provider Urology
DX: N20.1 Calculus of ureter (principal)
CPT/HCPCS: 74018; 76770

== ENCOUNTER 2024-04-23 12:10 | Outpatient (CLI) | payer BC, SELFPAY ==
--- NOTE | ~2024-04-23 | MM_ITS ---
EXAMINATION: MM screening [facility] BI w biju HISTORY: Screening mammogram TECHNIQUE: Craniocaudal and mediolateral oblique 3-D tomosynthesis images were obtained and synthetic 2-D images were generated. CAD analysis was submitted and interpreted. COMPARISON: 02/18/2023, 12/01/2021, 09/15/2020 BREAST PARENCHYMAL COMPOSITION:Dense: The breasts are heterogeneously dense, which may obscure small masses. FINDINGS: No suspicious mass, calcification, or architectural distortion are identified in either neida ast to suggest malignancy. There has been no suspicious interval change. IMPRESSION: No mammographic evidence of malignancy. Recommend routine screening mammography in one year. BI-RADS Category 1: Negative Reviewed, dictated and finalized at location . ROLLER OPERATOR
== END 2024-04-23 12:11 | disposition home or self-care (01) ==
PROVIDERS: PCP Family Medicine; Visit Provider Obstetrics & Gynecology
DX: Z12.31 Encounter for screening mammogram for malignant neoplasm of breast (principal)
CPT/HCPCS: 77063; 77067

== ENCOUNTER 2025-04-15 09:29 | Outpatient (CLI) | payer BC, SELFPAY ==
--- NOTE | ~2025-04-15 | CT_ITS ---
EXAMINATION: CT abdomen pelvis wo con DATE: 04/15/2025 09:48 INDICATION: Right-sided flank pain TECHNIQUE: Computed tomography (CT) of the abdomen and pelvis was performed with 100 mL Omnipaque-350 intravenous contrast. Automated exposure control and iterative reconstruction technique were employed. The dose-length product was 209.12 mGy-cm. COMPARISON: None FINDINGS: Lung bases are clear. Heart size is normal. No pericardial or pleural effusion. Calcified gallstones in the otherwise normal nondilated gallbladder with no wall thickening or pericholecystic infiltrate stranding to suggest acute cholecystitis. Liver, spleen, pancreas, left kidney and bilateral adrenal glands are normal. There are couple cysts in the right kidney which measure 5.6 cm and 6.0 cm in maximal diameter on coronal imaging. No urolithiasis or hydronephrosis. Bowels including the appendix are normal. Bladder is normal. The uterus is not identified and has likely been surgically resected. No free intraperitoneal gas or fluid. No pathologically enlarged abdominal or pelvic lymphadenopathy. Tiny fat-containing umbilical hernia. Severe disc height loss with sclerotic endplate changes at L2-L3. Otherwise mild lumbar and lower thoracic spondylosis. IMPRESSION: 1. Normal appendix with no urolithiasis or acute intra-abdominal/pelvic process. 2. Cholelithiasis. Reviewed, dictated and finalized at location A. TING MACHINE OPERATOR IMPRESSION: 1. Normal appendix with no urolithiasis or acute intra-abdominal/pelvic process . 2. Cholelithiasis.
--- OUTSIDE RECORDS SUMMARY | 2025-04-15 09:51 | XMS_ITS | Encounter Summary ---
Author Organization [facility] Address [address] [place] [address] Care Team Providers Care Pens And Pencils Repairer Name Role Phone Sample, Cordell Tran MD Unavailable [phone] Alda Golden Primary Care Pr ovider Jeancarlos Dash MD Primary Care Provider [phone] Encounter Details Date Type Department Care Team (Late st Contact Info) Description 12/02/2022 Telephone [facility] - Centralized Scheduling [address] [place] [address] Bari Adler MD [address] [place] [address] Social History Tobacco Use Types Packs/Day Years Used Date Smoking Tobacco: Never Smokeless Tobacco: Never Alcohol Use Standard Drinks/Week Comments Not Currently 0 (1 standard drink = 0.6 oz pur e alcohol) 1/2 YEARLY Comments No Sex and Gender Information Value Date Recorded Sex Assigned at Not on file Legal Sex Female 1:56 PM CDT Gender Identity Not on file Sexual Orientation Not on file documented as of this encounter Plan of Treatment Not on file documented as of this encounter Visit Diagnoses Not on filedocumented in this encounter Care Teams Pens And Pencils Repairer Relationship Specialty Start Date End Date Alda Golden PA [address] [place] [address] PCP - General 12/20/19 01/29/24 Jeancarlos Dash MD [address] [place], [place] [id number] PCP - General Family Medicine 01/30/24 [place] [address] [address] Dinkey Engine Firer/Fireman Obstetrics and Gynecology 02/15/13 documented as of this encounter
--- OUTSIDE RECORDS SUMMARY | 2025-04-15 09:51 | XMS_ITS | Clinical Summary ---
Author Organization [facility] Address [address] [place] [address] Care Team Providers Care Locksmith Apprentice Name Role Phone Sample, Cordell Tran MD Unavailable [phone] Jeancarlos Dash MD Primary Care Provider [phone] Source Comments [facility],non-owned Affiliates and Associated Physician Practices is amultiple site organization consisting of ambulatory clinics and hospital sitesin [place], [place], [place] and [place]. This disclosure is being madepursuant to the Care Everywhere program and may not contain all information available regarding this patient. Last updated 18.[facility] Allergies Active Allergy Reactions Criticality Noted Date Comments Cat Hair Extract Unknown 01/04/2023 Medications * Be aware that medications may not be up to date on this document. Alwaysverify current medications with the patient. pantoprazole EC (PROTONIX) 40 MG tablet Take 1 (one) tablet by mouth once daily 0 Active montelukast (SINGULAIR) 10 MG tablet Take 1 (one) tablet by mouth once daily 0 Active albuterol HFA (PROVENTIL;HENRY TOLIN;PROAIR) 108 (90 Base) MCG/ACT inhaler Inhale 1 (one) puff by mouth as directed Active rosuvastatin (CRESTOR) 5 MG tablet Take 1 (one) tablet by mouth once daily Active lisinopril-hyd roCHLOROthiazi de (Prinzide; Zestoretic) 20-25 MG tablet Take 1 (one) tablet by mouth once daily 3 Active Budesonide Compound 0.6 mg capsules. Mix contents of 1 capsule in 240 ml saline, and irrigate half in each nostril twice daily. 60 capsule 11 3 Active Additional Information Patient taking differently: 1 tablet Nasal DIRECTED, Compound 0.6 mg capsules. Mix contents of 1 capsule in 240 ml saline, and irrigate half in each nostril twice daily., Reported on 02/11/2025 budesonide (Pulmicort) 0.5 MG/2ML nebulizer suspension MIX CONTENTS OF 1 VIAL IN 120 ML SALINE. IRRIGATE HALF IN EACH NOSTRIL TWICE A DAY 360 mL 3 4 Active Additional Information Patient taking differently: 0.5 mg Inhalation DAILY, MIX CONTENTS OF 1 VIAL IN 120 ML SALINE. IRRIGATE HALF IN EACH NOSTRIL TWICE A DAY, Reported on 02/11/2025 Breo Ellipta 200-25 MCG/ACT inhaler Inhale 1 (one) puff by mouth as needed 4 Active Ozempic, 1 MG/DOSE, 4 MG/3ML pen Inject 1 (one) mg subcutaneously every 7 days (once a week) 5 Active estradiol (Estrace) 0.01 % vaginal cream Insert 1 g into the vagina at bedtime 5 Active dupilumab (Dupixent) 300 MG/2ML prefilled pen INJECT 300 MG (1 PEN) UNDER THE SKIN EVERY 14 DAYS 12 mL 3 5 Active Active Problems Problem Noted Date Diagnosed Date Ureterolithiasis 02/12/2025 Colon polyp 05/08/2023 05/30/2023 Sigmoid diverticulosis 05/08/2023 4 Type II diabetes mellitus, well controlled 10/1311/29/2022 Obstructive sleep apnea of adult 03/31/2020 Asthma 02/20/2020 Gastroesophageal reflux disease 10/23/2018 ETD (eustachian tube dysfunction) 09/08/2016 Chronic pansinusitis 07/06/2016 Microcytic hypochromic anemia 03/03/2016 Laryngopharyngeal reflux 01/27/2016 Nasal polyps 06/24/2015 Benign hypertension 09/07/2013 Overview (12/24/2019): BENIGN HYPERTENSION Mild intermittent asthma, uncomplicated 04/24/19 14 Overview (12/24/2019): Asthma Resolved Problems Problem Noted Date Diagnosed Date Resolved Date Essential hypertension 01/26/201811/29 Encounters Date Type Department Care Team Description 03/10/2025 Refill [facility] - ENT [address], [address] [place] [id number] Jerica Groevr MD Refill Request 02/11/2025 8:15 AM CDT Office Visit [facility] - ENT [address], [address] [place] [id number] Jerica Grover MD Chronic pansinusitis (Primary Dx); Laryngopharyngeal reflux; Nasal polyps 02/11/2025 Travel from Last 3 Months Immunizations Immunization Administration Dates Next Due Covid Moderna primary monova lent 12+ yr 0.5mL 03/26/2021,07/04/2020,06/06/2020 INFLUENZA VACCINE 05/03/2021 INFLUENZA VACCINE, QUADR. (F LUZONE; FLULAVAL; FLUARIX; AFLURIA QUADRIVALENT; 6MO+), 0.5 ML (IIV4) 02/21/2020,02/14/2019 TDAP (7yrs+) 02/08/2010 Family History Medical History Relation Name Comments Cancer - Other Brother Cancer - Colon Father Cancer - Other Father Hypertension Mother Cancer - Other Sister Cancer - Uterine Sister Relation Name Status Comments Brother Father Mother Sister Social History Tobacco Use Types Packs/Day Years [...] on file Sexual Orientation Not on file Last Filed Vital Signs Vital Sign Reading Time Taken Comments Blood Pressure 138/88 02/11/2025 8:20 AM CDT Pulse 80 02/11/2025 8:20 AM CDT Temperature 36.6 C (97.8 F) 11/03/2020 1:18 PM CDT Respiratory Rate 16 09/29/2016 3:15 PM CDT Oxygen Saturation 98% 09/29/2016 3:15 PM CDT Inhaled Oxygen Concentration - - Weight 78.9 kg (174 lb) 02/11/2025 8:16 AM CDT Height 167.6 cm (5' 6) 02/11/2025 8:16 AM CDT Body Mass Index 28.08 02/11/2025 8:16 AM CDT Plan of Treatment Health Maintenance Due Date Last Done Comments COLOGUARD (AGES 45-75) - COLON CA SCREENING 1964 COLON MONITORING 1964 COLONOSCOPY - COLON CA SCREENING 1964 CT COLONOGRAPHY - COLON CA SCREENING 1964 Colorectal Cancer Screening 1964 FIT - COLON CA SCREENING 1964 FLEX SIG - COLON CA SCREENING 1964 MAMMOGRAM 1964 HIV SCREENING 12/04/1979 HEPATITIS C SCREENING 11/29/1982 DIABETES-SERUM CREATININE 1982 PNEUMOCOCCAL VACCINE 50+ (1 of 2 - PCV) 12/04/1983 Respiratory Syncytial Virus (RSV) Vaccine Pt: or over 60 yrs (1 - Risk 50-74 years 1-dose series) 2014 ZOSTER VACCINE (1 of 2) 2014 DTAP/TDAP/TD VACCINES (2 - Td or Tdap) 02/09/2020 02/08/2010 DIABETES RETINOPATHY SCREENING 11/29/2022 DIABETES-FOOT EXAM WITH MONOFILAMENT 11/29/2022 DIABETES-HGB A1C 11/29/2022 DEPRESSION SCREENING 04/24/2024 DIABETES - URINE PROTEIN SCREENING 04/24/2024 COVID-19 VACCINE ( season) 2024 03/26/2021, 07/04/2020, 06/06/2020 INFLUENZA VACCINE (#1) 2024 , 02/21/2020, 02/14/2019 PAP SMEAR 11/30/2027 11/29/2024, 0811/2024, 10/03/2022, Additional history exists HEPATITIS B VACCINE Aged Out No longe r eligible based on patient's age to complete this topic HIB VACCINE Aged Out No longer eligi ble based on patient's age to complete this topic HPV VACCINE Aged Out No longer eligi ble based on patient's age to complete this topic MENINGOCOCCAL (Group B) VACCINE SHARED DECISION-MAKING Aged Out No longer eligible based on patient's age to complete this topic MENINGOCOCCAL GROUPS A/C/Y/W VACCINE Aged Out No longer eligible based on patient's age to complete this topic Procedures Procedure Name Priority Date/Time Associated Diagnosis Comments CO NASAL ENDOSCOPY DIAGNOSTIC UNI/BI SPX Routine 02/11/2025 8:41 AM CDT Chronic pansinusitis Nasal polyps from Last 3 Months Results * CO NASAL ENDOSCOPY DIAGNOSTIC UNI/BI SPX (02/11/2025 8:41 AM CDT) Narrative Jerica Grover MD - 02/11/2025 8:41 AM CDT Jerica Grover MD 02/12/2025 12:39 PM Procedure: Rigid Nasal Endoscopy Anesthesia: none Detail: Rigid nasal endoscopy performed bilaterally. We visualized the entire septum as well as the inferior turbinate, middle turbinate, superior turbinate and sphenoethmoid recess. We also visualized the nasopharynx. Unless mentioned below these structures were normal. Septum was relatively midline. Visualized into the bilateral middle meatus and there is good appearance of the mucosa. Maxillary, ethmoid, and sphenoid sinuses are easily visible on both sides. Frontal outflow tract is open on the right. On the left I am not able to visualize the frontal outflow tract proper as there has been significant resection of the middle turbinate. The superior ethmoids have excellent appearance and are widely open, as are the maxillary sinus. A little bit of clear mucus patchy. Patient tolerated well. Jerica Grover MD PROCEDURE/MINOR SURGICAL OR DERABLES Final Result from Last 3 Months Insurance ANTHEM AET[employer] ANTHEM * Guarantor: CINDY FRANCIS Account Type Relation to Patient Date of Phone Billing Address Personal/Family Spouse ANTHEM ANTHEM Care Teams Locksmith Apprentice Relationship Specialty Start Date End Date Jeancarlos Dash MD [address] [place] [address] PCP - General Family Medicine 01/30/24 Evelyn, [place] [address] [address] Clinical Nursing Director Obstetrics and Gynecology 02/15/13
--- OUTSIDE RECORDS SUMMARY | 2025-04-15 09:51 | XMS_ITS | Clinical Summary ---
Author Organization [facility] Address [address] [place] [phone] Phone Care Team Providers Care Motorbike Courier Name Role Phone Jamal Canales MD Unavailable [phone] Alda Alvarez Primary Care Provider Allergies No known active allergies Medications hydrochlorothiazide 25 MG Tablet Take 25 mg by mouth every morning. 2 03/05/20 Active fluticasone-vilante rol (BREO ELLIPTA) 200-25 MCG/INH AEROSOL POWDER, BREATH ACTIVATED take by inhalation every morning. Active budesonide (PULMICORT) 0.5 MG/2ML SuspensionIndicatio ns:Mild intermittent asthma, uncomplicated Inhale Via nebulizer BID 180 Vial 3 08/08/19 Active Additional Information Patient not taking.Reported on 05/22/2019 Probiotic Product (PROBIOTIC & ACIDOPHILUS EX ST) CapsuleIndications: Chronic ethmoidal sinusitis,Chronic maxillary sinusitis,Chronic frontal sinusitis Take 1 daily by mouth while on antibiotics and for at lesat 5 days after completing the antibiotic course. 08/08/19 Active Additional Information Patient not taking.Reported on 04/12/2023 Zebulon-3 Fatty Acids (FISH OIL PO) Take by mouth every morning. Active IRON PO Take by mouth every morning. Active Levocetirizine Dihydrochloride (XYZAL ALLERGY 24HR) 5 MG Tablet Take 1 Tab by mouth every morning. Active lisinopril-hydroCHL OROthiazide (PRINZIDE, ZESTORETIC) 20-25 MG Tablet Take 1 Tablet by mouth daily. Active amLODIPine (NORVASC) 5 MG Tablet Take by mouth every morning. Active albuterol (PROAIR HFA) 108 (90 Base) MCG/ACT Aerosol Solution 90 mcg. 09/25/19 13 Active Azelastine-Fluticas one 137-50 MCG/ACT Suspension spray 2 spray by intranasal route in the pm. 08/02/19 14 Active methylPREDNISolone (MEDROL DOSPACK) 4 MG Tablet Therapy PackIndications:Jag al polyps 6 tabs po QD on day 1; 5 tabs on day 2; 4 tabs on day 3, 3 tabs on day 4; 2 tabs on day 5; 1 tab on day 6. Always take in the AM 21 Tab 07/03/19 Active Additional Information Patient not taking.Reported on 04/12/2023 amoxicillin-clavula benito (AUGMENTIN) 875-125 MG TabletIndications:N candida polyps Take 1 Tab by mouth 2 times daily. 20 Tab 07/03/19 20 Active Additional Information Patient not taking.Reported on 04/12/2023 fluticasone (FLONASE) 50 MCG/ACT SuspensionIndicatio ns:Nasal polyps,PNAR (perennial non-allergic rhinitis) 2 Sprays by Nasal route daily. 2 sprays each nostril twice daily for nasal polyps 6 Bottle 3 07/03/19 Active Additional Information Patient not taking.Reported on 04/12/2023 pantoprazole (PROTONIX) 40 MG Tablet Delayed ResponseIndications :Nasal polyps,Chronic ethmoidal sinusitis,Chronic maxillary sinusitis,Chronic frontal sinusitis,Hypertrop hy of inferior nasal turbinate,Laryngoph aryngeal reflux Take 1 Tab by mouth 2 times daily. Take 1 tab PO BID (30-60' before breakfast and supper) 180 Tab 3 07/31/19 20 Active Additional Information Patient taking differently:40 mg OralDAILY, Take 1 tab PO BID (30-60' before breakfast and supper), Reported on 04/12/2023 montelukast (SINGULAIR) 10 MG TabletIndications:N candida polyps,Chronic ethmoidal sinusitis,Chronic maxillary sinusitis,Chronic frontal sinusitis,Seasonal allergic rhinitis due to pollen Take 1 Tab by mouth every evening. Take 1 tablet by mouth daily. 90 Tab 3 08/19/19 20 Active Semaglutide (Rybelsus) 7 MG Tablet Take by mouth daily. Active metFORMIN (GLUCOPHAGE) 500 MG Tablet Take 1,000 mg by mouth every evening. Active Dupilumab (Dupixent) 300 MG/2ML Solution Pen-injector by Subcutaneous route every 14 days. Active Active Problems Problem Noted Date Diagnosed Date Colon polyp 05/08/2023 Sigmoid diverticulosis 05/08/2023 Hyposmia 02/20/2017 ETD (eustachian tube dysfunction) 09/08/2016 Chronic pansinusitis 07/06/2016 Iron deficiency anemia 03/04/2016 Microcytic hypochromic anemia 03/03/2016 Chronic frontal sinusitis 02/19/2016 Chronic ethmoidal sinusitis 02/19/2016 Chronic maxillary sinusitis 02/19/2016 Chronic sphenoidal sinusitis 02/19/2016 UARS (upper airway resistance syndrome) 01/27/20 16 Laryngopharyngeal reflux 01/27/2016 Pachyderma of larynx 06/24/2015 PNAR (perennial non-allergic rhinitis) 6 Seasonal allergic rhinitis 06/24/2015 Nasal polyps 06/24/2015 Persistent hypersomnia 06/24/2015 Syncope 04/08/2015 Abnormal EEG 04/08/2015 Mild intermittent asthma, uncomplicated 04/24/19 14 Overview (08/07/2018): Asthma Resolved Problems Problem Noted Date Diagnosed Date Resolved Date Acute serous otitis media, left ear 09/08/2016 06/01/2017 Bilateral chronic serous otitis media 07/06/2016 08/09/2016 Conductive hearing loss, middle ear 07/06/2016 06/01/2017 Family History Medical History Relation Name Comments Cancer Father Colon Cancer Father No Known Problems Maternal Grandfather Diabetes Maternal Grandmother Diabetes Mother Hypertension Mother Migraines Mother Cancer Sister Colon Cancer Sister Uterine Cancer Sister Relation Name Status Comments Father Maternal Grandfather Maternal Grandmother Mother Alive Paternal Grandfather Other Paternal Grandmother Other Sister Alive Social History Tobacco Use Types Packs/Day Years Used Date Smoking Tobacco: Never Smokeless Tobacco: Never Alcohol Use Standard Drinks/Week Comments Not Currently 0 (1 standard drink = 0.6 oz pur e alcohol) Comments No Sex and Gender Information Value Date Recorded Sex Assigned at Not on file Legal Sex Female 4:44 PM CARD MOUNTER Gender Identity Not on file Sexual Orientation Not on file Occupation Industry Job Start Date Job End Date teacher Not on file Not on file Not on file Last Filed Vital Signs Vital Sign Reading Time Taken Comments Blood Pressure 132/76 05/08/2023 11:20 AM CARD MOUNTER Pulse 69 05/08/2023 11:20 AM CARD MOUNTER Temperature 36.2 C (97.2 F) 05/08/2023 11:20 AM CARD MOUNTER Respiratory Rate 15 05/08/2023 11:05 AM CARD MOUNTER Oxygen Saturation 98% 05/08/2023 11:20 AM CARD MOUNTER Inhaled Oxygen Concentration - - Weight 83 kg (183 lb) 04/12/2023 10:17 AM CARD MOUNTER Height 167.6 cm (5' 6) 04/12/2023 10:17 AM CARD MOUNTER Body Mass Index 29.54 04/12/2023 10:17 AM CARD MOUNTER Plan of Treatment Health Maintenance Due Date Last Done Comments Hepatitis C Virus (HCV) Screening 1964 Mammogram 1964 Pneumococcal Immunization (50+ years) (1 of 2 - PCV) 12/04/1983 Cologuard 2009 Immunochemical Fecal Occult Blood 2009 Respiratory Syncytial Virus (RSV) Immunization (Adult) (1 - Risk 50-74 years 1-dose series) 2014 Zoster Immunization (1 of 2) 2014 Influenza Immunization (#1) 12/23/202404/24, 04/20/2021, 02/21/2020, Additional history exists SARS-COV-2 Immunization ( season) 2024 03/26/2021, 07/04/2020, 06/06/2020 Colonoscopy 05/08/2028 05/08/2023, 04/24, 06/10/2019 Colorectal Cancer Screening 05/08/2028 DTaP/Tdap/Td Immunization Discontinued 02/08/2010 TdaP Immunization Completed 02/08/2010 Hepatitis B Immunization Aged Out No longer eligible based on patient's age to complete this topic Human Papillomavirus (HPV) Immunization (No Doses Required) Completed Meningococcal Immunization (ACWY) Aged Out No longer eligible based on patient's age to complete this topic Rotavirus Immunization Aged Out No lo nger eligible based on patient's age to complete this topic Medical Devices Implanted Type [facility] Coordinator Device Identifier Shelf Expiration Date Model / Serial / Lot Propel Implanted:Qty: 1 on 03/07/2016 by [facility] Rya MD at [facility] Right: Nose [employer] 05/07/2017 [id number] / / [id number] Propel Mini Implanted:Qty: 2 on 03/07/2016 by Anton Ray MD at [facility] Right: Nose [employer] 07/27/2017 [id number] / / [id number] Propel Sinus Implant Implanted:Qty: 1 on 03/07/2016 by Anton Ray MD at [facility] Left: Nose [employer] 05/07/2017 [id number] / / [id number] Propel Mini Sinus Implant Implanted:Qty: 2 on 03/07/2016 by Anton Ray MD at [facility] Left: Nose [employer] 07/27/2017 [id number] / / [id number] Procedures Procedure Name Priority Date/Time Associated Diagnosis Comments GI IMAGING - COLONOSCOPY Routine 05/08/2023 9:53 AM CARD MOUNTER from Last 3 Months or Most Recently Relevant to Health Maintenance Results * GI IMAGING - COLONOSCOPY (05/08/2023 9:53 AM CARD MOUNTER) us George Rousseau MD IMG DIAGNOSTIC ORDERABLES Final Result from Last 3 Months or Most Recently Relevant to Health Maintenance Insurance [facility] Care Teams Motorbike Courier Relationship Specialty Start Date End Date Alda Alvarez PA [address] [place] [address] PCP - General Family Medicine 06/10/19 Jamal Canales MD [address] [place] [address] Consulting Physician Allergy & Immunology 03/15/16
--- OUTSIDE RECORDS SUMMARY | 2025-04-15 09:51 | XMS_ITS | Clinical Summary ---
Author Organization [address] Address [address] [place] [address] Care Team Providers Care Community Health Specialist Name Role Phone No, Physician Primary Care Provider [phone] Allergies No known active allergies Medications amLODIPine (NORVASC) 5 mg tablet 05/07/2022 Active lisinopril-hydroCH LOROthiazide (ZESTORETIC) 20-25 mg per tablet 04/25/2022 Activ e Rybelsus 7 mg tablet 03/15/[address] (PROTONIX) 40 mg EC tablet 05/12/2022 Active montelukast (SINGULAIR) 10 mg tablet 05/24/2022 Active metFORMIN XR (GLUCOPHAGE XR) 500 mg 24 hr tablet 04/14/2022 Active rosuvastatin (CRESTOR) 5 mg tablet 04/23/2022 Active Breo Ellipta 200-25 mcg/dose diskus inhaler 05/07/2022 Acti ve budesonide (PULMICORT) 0.5 mg/2 mL nebulizer solution 05/25/2022 Active Active Problems No known active problems Surgical History Surgery Date Site/Laterality Comments HYSTERECTOMY 02/16/2022 SINUS SURGERY 03/24/2020 - 04/23/2020 Medical History Medical History Date Comments HTN (hypertension) Diabetes High cholesterol Family History Medical History Relation Name Comments Diabetes Mother Hypertension Mother Relation Name Status Comments Father Mother Social History Tobacco Use Types Packs/Day Years Used Date Smoking Tobacco: Never Assessed Comments Unknown Sex and Gender Information Value Date Recorded Sex Assigned at Not on file Legal Sex Female 8:52 AM ORDNANCE TRUCK INSTALLATION MECHANIC Gender Identity Not on file Sexual Orientation Not on file Last Filed Vital Signs Vital Sign Reading Time Taken Comments Blood Pressure 118/62 06/21/2022 3:56 PM ORDNANCE TRUCK INSTALLATION MECHANIC Pulse 90 06/21/2022 3:56 PM ORDNANCE TRUCK INSTALLATION MECHANIC Temperature 36.2 C (97.2 F) 06/21/2022 3:56 PM ORDNANCE TRUCK INSTALLATION MECHANIC Respiratory Rate 18 06/21/2022 3:56 PM ORDNANCE TRUCK INSTALLATION MECHANIC Oxygen Saturation 96% 06/21/2022 3:56 PM ORDNANCE TRUCK INSTALLATION MECHANIC Inhaled Oxygen Concentration - - Weight 78.8 kg (173 lb 12.8 oz) 06/21/2022 3:56 PM ORDNANCE TRUCK INSTALLATION MECHANIC Height 165.1 cm (5' 5) 06/21/2022 3:56 PM ORDNANCE TRUCK INSTALLATION MECHANIC Body Mass Index 28.92 06/21/2022 3:56 PM ORDNANCE TRUCK INSTALLATION MECHANIC Plan of Treatment Health Maintenance Due Date Last Done Comments Breast Cancer Screening-Mammogram 1964 Colon Cancer Screening-Colonoscopy 1964 Depression Screening 1964 Hepatitis C Screening 1964 DTaP/Tdap/Td Vaccine (1 - Tdap) 12/04/1975 Hepatitis B Screening 1982 Regular Well Visit/Exam 18-64 1982 Zoster Vaccine (1 of 2) 2014 Covid-19 Vaccine (4 - 2024-2 6 season) 2024 03/26/2021, 07/04/2020, 06/06/2020 Influenza Vaccine (#1) 2024 04/20/2021 Pneumococcal vaccine <65 Aged Out No longer eligible based on patient's age to complete this topic Insurance [facility] [address] [id number] Care Teams Community Health Specialist Relationship Specialty Start Date End Date No, Physician PCP - General 06/21/22
--- OUTSIDE RECORDS SUMMARY | 2025-04-15 09:51 | XMS_ITS | Encounter Summary ---
Author Organization [facility] Address [address] [place] [address] Care Team Providers Care Technical Sales Director Name Role Phone Sample, Cordell Tran MD Unavailable [phone] Alda Golden Primary Care Pr ovider Jeancarlos Dash MD Primary Care Provider [phone] Encounter Details Date Type Department Care Team (Late st Contact Info) Description 03/27/2020 Lab Requisition [facility] Care Pathology Lab [address] [place] [address] Jerica Grover MD [address] [facility] [address] [place] [address] Illness, unspecified Social History Tobacco Use Types Packs/Day Years [...] on file documented as of this encounter Procedures Procedure Name Priority Date/Time Associated Diagnosis Comments PATHOLOGY TISSUE Routine 03/26/2020 10:0 0 AM [employer] Illness, unspecified documented in this encounter Results * PATHOLOGY TISSUE (03/26/2020 10:00 AM [employer]) Case Report Surgical Pathology Report Case: [id number] Authorizing Provider: Jerica Grover MD Collected: 03/26/2020 10:00 AM Ordering Location: [facility] Pathology Lab Received: 03/27/2020 11:56 AM Pathologist: Doris Maldonado Mai, DO Specimen: Sinus 03/31/2020 4:45 PM [facility] PATHOLOGY [facility] Final Diagnosis Sinus contents, removal (A): - Polypoid fragments of sinonasal mucosa with chronic inflammation including patchy eosinophilia. 03/31/2020 4:45 PM [facility] PATH[facility]Y LAB at [address] Microscopic Description and Comment Sections from the sinus contents show tissue with chronic inflammation characterized by plasma cells, lymphocytes and patchy aggregates of eosinophils. Some admixed neutrophils are in the background but there is no significant acute inflammation. Fragments of unremarkable bone are present. There are no obvious fungal elements on routine stain but given the patchy eosinophilia, a GMS stain is pending and will be reported in an addendum. VH/KH 03/31/2020 4:45 PM [facility] Clinical History The patient is a 54 year old woman with chronic sinusitis with underwent FESS. 03/31/2020 4:45 PM [facility] Gross Description The requisition and specimen(s) are identified with the patient's name, Bety Francis. Received in formalin, specimen A, multiple fragments of brown-mann tissue with admixed coagulated with an aggregate measurement of 9.0 x 3.5 x 1.5 cm. The fragments are submitted in cassette A1. 03/31/2020 4:45 PM [facility] Addendum 1 A properly controlle d GMS stain highlights inspissated secretions and debris but reveals no discrete fungal elements. The diagnosis is unchanged. 03/31/2020 4:45 PM [facility] Addendum electronically signed by Doris Maldonado Mai, DO on 03/31/2020 at [address] Disclaimer The performance characteristics of all immunohistochemical and indirect immunofluorescence stains (if any) cited in this report were determined by the [facility] of [facility]. Some of these tests were developed by our own laboratory and have not been cleared or approved by the US Food and Drug Administration. The FDA does not require this test to go through premarket FDA review. These tests are used for clinical purposes. They should not be regarded as investigational or for research. This laboratory is certified under the Clinical Laboratory Improvement Amendments (CLIA) as qualified to perform high complexity clinical laboratory testing. This case has been personally reviewed and interpreted by the attending (teaching) pathologist. 03/31/2020 4:45 PM [employer] [facility] PATHOLOGY LAB Embedded Images 03/31/2020 4:45 PM [employer] [facility] PATHOLOGY LAB Pathology/Cytolo gy SINUS / Unknown 03/26/2020 10:00 AM [employer] 03/27/2020 11:56 AM [employer] Jerica Grover MD LAB - PATHOLOGY/CYTOLOGY OR DERABLES Edited Result - Final [facility] PATHOLOGY LAB [address] [phone] documented in this encounter Visit Diagnoses Diagnosis Illness, unspecified documented in this encounter Care Teams Technical Sales Director Relationship Specialty Start Date End Date Alda Golden PA [address] [place] [address] PCP - General 12/20/19 01/29/24 Jeancarlos Dash MD [address] [place] [address] PCP - General Family Medicine 01/30/24 [place] [id number] [id number] [employer] Helper Obstetrics and Gynecology 02/15/13 documented as of this encounter
== END 2025-04-15 09:30 | disposition home or self-care (01) ==
PROVIDERS: PCP Family Medicine; Visit Provider Nurse Practitioner Family
DX: K80.20 Calculus of gallbladder without cholecystitis without obstruction (principal); Z87.442 Personal history of urinary calculi
CPT/HCPCS: 74176